=== PATIENT | male | born 1950 | race Caucasian/White ===

== ENCOUNTER 2019-07-28 10:09 | Outpatient (CLI) | payer MEDICARE, SELFPAY ==
--- NOTE | ~2019-07-28 | XR_ITS ---
EXAMINATION: XR abdomen/kub 1V EXAM DATE: 07/28/2019 10:27 INDICATION: Kidney stones follow-up. TECHNIQUE: Frontal projection(s) of the abdomen for interpretation. Comparison is made to prior exami nation from 12/24/2018. FINDINGS: There is expected amount of colonic stool and gas. No small bowel dilation, nonobstructiv e bowel gas pattern. There are 6 calcifications projecting over the left mid and lower calyces consi stent with stones, largest measuring about 8 mm. These have shifted in position but otherwise don't a ppear significantly changed. Calcifications in the pelvis are believed to be phleboliths. There is no organomegaly suspected. There are mild bony degenerative changes. IMPRESSION: Left nephrolithiasis. Reviewed, dictated and finalized at location B. IMPRESSION: Left nephrolithiasis.
== END 2019-07-28 10:10 | disposition home or self-care (01) ==
LOC: ANHIMG 10:16
PROVIDERS: PCP Internal Medicine; Visit Provider Urology
DX: N20.0 Calculus of kidney (principal)
CPT/HCPCS: 74018

== ENCOUNTER → 2019-12-23 13:48 | Outpatient (CLI) | payer MEDICARE, SELFPAY ==
--- NOTE | ~2019-12-23 | US_ITS ---
EXAMINATION: US soft tissue abdomen DATE: 12/23/2019 14:13 INDICATION: Umbilical hernia TECHNIQUE: Multiple grayscale and Doppler ultrasound images of the umbilical region of concern at the anterior abdomen were obtained. COMPARISON: CT dated 12/18/2018 FINDINGS: There is a small fat-containing umbilical hernia which measures 3.5 x 1.6 x 0.8 cm. This extends ceph alad from the hernia orifice which measures approximately 1 cm in maximal diameter. The umbilical her kristal measuring approximately 1.8 x 1.2 x 1.3 cm at the time of the prior CT. No herniated bowel. IMPRESSION: 1. Interval increase in size of a still small fat-containing umbilical hernia. Reviewed, dictated and finalized at location A.
== END ==
PROVIDERS: Visit Provider Internal Medicine
DX: K42.9 Umbilical hernia without obstruction or gangrene (principal)
CPT/HCPCS: 76705

== ENCOUNTER 2020-03-11 01:18 | Outpatient (CLI) | payer MEDICARE, SELFPAY ==
[2020-03-11 18:05] LABS: SARS-CoV-2 RNA PCR Negative
== END 2020-03-11 01:19 | disposition home or self-care (01) ==
LOC: ANHCOVIDDT 01:27
PROVIDERS: Visit Provider Internal Medicine Gastroenterology
DX: Z01.812 Encounter for preprocedural laboratory examination (principal); Z20.828 Contact with and (suspected) exposure to other viral communicable diseases
CPT/HCPCS: 87635; C9803; U0003

== ENCOUNTER 2020-03-14 00:13 | Day surgery (SDC) | payer MEDICARE, SELFPAY ==
[2020-03-07 13:36] VITALS: BMI 31.6
[2020-03-14] MEDS: LACTATED RINGERS 1,000 ML 150 ML IV CONT (10:53)
[2020-03-14 10:55] VITALS: BP 119/94; PULSE 103; RESP 12; TEMP 36.5; O2SAT 96; BMI 28.1
--- NOTE | 2020-03-14 10:55 | WPDANESEPPF ---
Anes - Initial Pre Proc Eval Procedure: Operation Date: 03/14/20 12:15 Proposed Procedures p Screening Colonoscopy - Conor Earl MD Date/Time: 03/14/20 10:55 Surgeon: Conor Earl MD Pre Op Diagnosis: Neoplasm Screening Patient Data Age: 69 Gender: M Height: 5 ft 10 in Weight: 100 kg Allergies Allergy/AdvReac Type Severity Reaction Status Date / Time No Known Allergies Allergy Verified 03/14/20 10:54 Home Medications Medication Instructions Recorded Confirmed Type atorvastatin 40 mg tablet 40 mg PO DAILY 04/23/19 03/07/20 History hydrochlorothiazide 25 mg tablet 25 mg PO DAILY #30 tablet 04/26/19 03/07/20 Rx omeprazole 20 mg capsule,delayed 20 mg PO DAILY #90 cap 01/25/20 03/07/20 Rx release peg 3350-electrolytes 236 240 ml PO Q10M #4000 ml 02/08/20 Rx gram-22.74 gram-6.74 gram-5.86 gram solution cholecalciferol (vitamin D3) 50 mcg PO DAILY 03/07/20 03/07/20 History [Vitamin D3] fluticasone propionate [Xhance] 1 spray INTRANASAL BID 03/07/20 03/07/20 History multivit with min-folic acid 1 tablet PO DAILY 03/07/20 03/07/20 History [Adult One Daily Multivitamin] Patient hx anesthesia problems: none Family hx anesthesia problems: none PMFSH Past Medical History Medical History (Updated 03/14/20 @ 10:55 by Jonathon Desouza MD) Chronic gastroesophageal reflux disease Dyslipidemia, goal LDL below 130 Essential (primary) hypertension Family History Family History Mother Patient's mother is , Onset Age: 52 Father Patient's father is , Onset Age: 70 Family history of liver disease Social History Social History Smoking status: Never smoker Alcohol intake: current Drinks per week: 7 Substance use: never Substance use type: does not use Spiritual care concerns: No Anes - Eval Final PreProcedure Day of Procedure 03/14/20 10:55 Patient weight: obese Heart: regular rate and rhythm Lungs: clear to auscultation Airway: Mallampati scale class II Neurological: alert and oriented Last oral intake: >/= 8 hours ASA classification: III Emergent: no Anesthetic plan: proceed Anesthesia type and monitoring: general GIVS and standard monitoring Informed Consent: The patient's anesthetic plan and its attendant risks and benefits were discussed with the patient/family/POA. Questions were solicited and answers provided to the satisfaction of the patient/family/POA.
--- NOTE | 2020-03-14 11:16 | PM.HPGS ---
History of Present Illness History of Present Illness Consent: Risks, benefits, and alternatives have been discussed and questions answered. Patient agrees to proceed with procedure. Chief complaint: Neoplasm Screening Narrative: King Rider is a 69 year old male with colon polyps ~ 7 years ago. Review of Systems Constitutional: Constitutional: Denies headache(s) and Denies weakness Eyes: Eyes: Denies blurry vision ENT: Reports Normal hearing present, Denies headache(s) and Denies neck pain Cardiovascular: Cardiovascular: Denies chest pain and Denies dyspnea Respiratory: Respiratory: Denies dyspnea Gastrointestinal: Gastrointestinal: Reports no additional gastrointestinal complaints Genitourinary: Genitourinary: Denies dysuria Musculoskeletal: Musculoskeletal: Denies neck pain Integumentary/Breasts: Skin/Breast: Denies dry skin Neurologic: Reports Normal hearing present, Denies headache(s) and Denies weakness Psychiatric: Psychiatric: Denies anxiety Endocrine: Endocrine: Denies change in body appearance Hematologic/Lymphatic: Hematologic/Lymphatic: Denies easy bleeding Allergic/Immunologic: Allergic/Immunologic: Denies urticaria PMFSH Past Medical History Medical History (Updated 03/14/20 @ 11:17 by Conor Earl MD) Adenomatous colon polyp Chronic gastroesophageal reflux disease Dyslipidemia, goal LDL below 130 Essential (primary) hypertension Family History Family History Mother Patient's mother is , Onset Age: 52 Father Patient's father is , Onset Age: 70 Family history of liver disease Social History Social History Smoking status: Never smoker Alcohol intake: current Drinks per week: 7 Substance use: never Substance use type: does not use Spiritual care concerns: No Meds Home Medications and Allergies Home Medications Medication Instructions Recorded Confirmed Type atorvastatin 40 mg tablet 40 mg PO DAILY 04/23/19 03/07/20 History hydrochlorothiazide 25 mg tablet 25 mg PO DAILY #30 tablet 04/26/19 03/07/20 Rx omeprazole 20 mg capsule,delayed 20 mg PO DAILY #90 cap 01/25/20 03/07/20 Rx release peg 3350-electrolytes 236 240 ml PO Q10M #4000 ml 02/08/20 Rx gram-22.74 gram-6.74 gram-5.86 gram solution cholecalciferol (vitamin D3) 50 mcg PO DAILY 03/07/20 03/07/20 History [Vitamin D3] fluticasone propionate [Xhance] 1 spray INTRANASAL BID 03/07/20 03/07/20 History multivit with min-folic acid 1 tablet PO DAILY 03/07/20 03/07/20 History [Adult One Daily Multivitamin] Allergies Allergy/AdvReac Type Severity Reaction Status Date / Time No Known Allergies Allergy Verified 03/14/20 10:54 Vital Signs Vital Signs - 24 hr 03/14/20 10:55 Temperature 97.7 F Pulse Rate 103 H Respiratory Rate 12 Blood Pressure 119/94 H Pulse Oximetry 96 Exam Const: General: comfortable and no acute distress HENMT: General nose exam: Normal nares present Eyes: General: appearance normal, both eyes and all related structures Neck: Neck: no JVD Resp: Auscultation: clear to auscultation bilaterally Cardio: Rate: regular rate Rhythm: regular rhythm GI: Inspection: non-distended GI Palp: Yes Soft to palpation Skin: General skin exam: normal color Neuro: General: gait normal Speech: normal speech Extrem: General: normal to inspection Psych: Mental Status: mental status grossly normal Assessment and Plan Assessment and plan (1) Adenomatous colon polyp: Code(s): D12.6 - Benign neoplasm of colon, unspecified Status: Acute Assessment and Plan: will proceed with colonoscopy
[2020-03-14 11:40] VITALS: BP 102/71; PULSE 73; RESP 18; O2SAT 95
[2020-03-14 11:50] VITALS: BP 97/66; PULSE 72; RESP 15; O2SAT 93
[2020-03-14 12:00] VITALS: BP 115/86; PULSE 76; RESP 15; O2SAT 93
== END 2020-03-14 12:17 | disposition home or self-care (01) ==
PROVIDERS: PCP Internal Medicine; Visit Provider Internal Medicine Gastroenterology
PROC: 0DJD8ZZ Inspection of Lower Intestinal Tract, Via Natural or Artificial Opening Endoscopic (ICD-10-PCS; CPT 45378; principal; 2020-03-14 12:15)
DX: Z12.11 Encounter for screening for malignant neoplasm of colon (principal); K57.30 Diverticulosis of large intestine without perforation or abscess without bleeding; K63.5 Polyp of colon; K21.9 Gastro-esophageal reflux disease without esophagitis; E78.5 Hyperlipidemia, unspecified; I10 Essential (primary) hypertension; E66.9 Obesity, unspecified; Z68.28 Body mass index [BMI] 28.0-28.9, adult
CPT/HCPCS: 45380; 88305; J2704; J7120

== ENCOUNTER 2020-03-20 14:26 | Outpatient (CLI) | payer MEDICARE, SELFPAY ==
--- NOTE | ~2020-03-20 | XR_ITS ---
EXAMINATION: XR abdomen/kub 1V DATE: 03/20/2020 14:46 INDICATION: Left kidney stone. TECHNIQUE: A supine view of the abdomen on 2 radiographs was obtained. COMPARISON: CT abdomen and pelvis 12/18/2018, abdomen radiographs 07/28/2019 FINDINGS: There are phleboliths in the pelvis. There are 6 stones in left kidney lower pole measuring up to 8 mm. There are no dilated loops of bowel. IMPRESSION: 1. Left kidney stones. Reviewed, dictated and finalized at location A. [employer] IMPRESSION: 1. Left kidney stones.
== END 2020-03-20 14:27 | disposition home or self-care (01) ==
LOC: ANHIMG 14:33
PROVIDERS: PCP Internal Medicine; Visit Provider Internal Medicine Nephrology
DX: N20.0 Calculus of kidney (principal)
CPT/HCPCS: 74018

== ENCOUNTER 2020-08-16 11:36 | Outpatient (CLI) | payer MEDICARE, SELFPAY ==
--- NOTE | ~2020-08-16 | XR_ITS ---
EXAMINATION: XR foot LT min 3V DATE: 08/16/2020 11:53 INDICATION: Left foot pain. TECHNIQUE: 4 views of left foot were obtained. COMPARISON: None. FINDINGS: Bone alignment is normal. No fracture. There is mild osteoarthritis of first metatarsophala ngeal joint and talonavicular joint. IMPRESSION: 1. Mild polyarticular osteoarthritis. Reviewed, dictated and finalized at location A.
== END 2020-08-16 11:37 | disposition home or self-care (01) ==
PROVIDERS: PCP Internal Medicine; Visit Provider Internal Medicine
DX: M19.072 Primary osteoarthritis, left ankle and foot (principal)
CPT/HCPCS: 73630

== ENCOUNTER 2021-02-13 14:27 | Outpatient (CLI) | payer MEDICARE, SELFPAY ==
--- NOTE | ~2021-02-13 | US_ITS ---
EXAMINATION: US arterial ankle brachial ind DATE: 02/13/2021 15:08 INDICATION: Right leg pain. Hypercholesterolemia. TECHNIQUE: Segmental pressures and plethysmographic and Doppler waveforms of the brachial and lower e xtremity arteries were obtained. COMPARISON: None. FINDINGS: Right and left brachial artery pressures of 107 mm Hg and 108 mm Hg, respectively, are concordant (no rmal difference <= 30 mmHg). The right ankle-brachial index (VICK) is 1.45 (normal >= 0.9-1.0). The right great toe-brachial index (TBI) is 1.0 (normal >= 0.65). Arterial Doppler waveforms are triphasic at the right posterior tibial artery. The left VICK is 1.41. The left TBI is 0.98. Arterial Doppler waveforms are triphasic at the left post erior tibial artery. IMPRESSION: Normal examination Reviewed, dictated and finalized at Location A. Reviewed, dictated and finalized at location B. IMPRESSION: Normal examination
== END 2021-02-13 14:28 | disposition home or self-care (01) ==
PROVIDERS: PCP Internal Medicine; Visit Provider Internal Medicine
DX: M79.604 Pain in right leg (principal); M79.605 Pain in left leg; E78.00 Pure hypercholesterolemia, unspecified; I73.9 Peripheral vascular disease, unspecified
CPT/HCPCS: 93922

== ENCOUNTER 2021-09-19 10:50 | Outpatient (CLI) | payer MEDICARE, SELFPAY ==
--- NOTE | ~2021-09-19 | XR_ITS ---
EXAM: XR abdomen/kub 1V HISTORY: CALCULUS OF KIDNEY FU DENIES PAIN COMPARISON: 03/20/20 FINDINGS: Normal bowel gas pattern. No organomegaly. 6 left renal calcifications, largest measuring 8mm, representing 5 old and one new stone. One stone seen the prior appears to have passed. Several h ave enlarged slightly. Phleboliths. Regional bones and soft tissues normal for age. IMPRESSION: Left nephrolithiasis. Reviewed, dictated and finalized at location K. IMPRESSION: Left nephrolithiasis.
== END 2021-09-19 10:51 | disposition home or self-care (01) ==
PROVIDERS: PCP Internal Medicine; Visit Provider Internal Medicine Nephrology
DX: N20.0 Calculus of kidney (principal); I73.9 Peripheral vascular disease, unspecified
CPT/HCPCS: 74018

== ENCOUNTER 2021-10-05 08:12 | Outpatient (CLI) | payer MEDICARE, SELFPAY ==
--- NOTE | ~2021-10-05 | NM_ITS ---
EXAMINATION: NM parathyroid w imaging DATE: 10/05/2021 12:00 INDICATION: Hypercalciuria. Hyperparathyroidism. TECHNIQUE: 20.8 mCi Tc99m sestamibi (Cardiolite) was administered by intravenous route. Anterior imag es of the neck were obtained at 10 minutes and 2 hours. Additional delayed SPECT imaging was also obt ained with reconstructions in axial, sagittal and coronal planes. COMPARISON: None. FINDINGS/IMPRESSION: There is no focus of persistent activity in the area of the thyroid or mediastinum to suggest parathy roid adenoma. Reviewed, dictated and finalized at location A.
== END 2021-10-05 08:13 | disposition home or self-care (01) ==
LOC: ANHIMG 08:14
PROVIDERS: PCP Internal Medicine; Visit Provider Internal Medicine Nephrology
DX: R82.994 Hypercalciuria (principal); E21.2 Other hyperparathyroidism
CPT/HCPCS: 78070; A9500

== ENCOUNTER 2022-01-16 08:26 | Outpatient (CLI) | payer MEDICARE, SELFPAY ==
[2022-01-16 19:57] LABS: Hemoglobin A1C 5.7 % (<5.7)
[2022-01-16 20:08] LABS: Alanine Aminotransferase 46 U/L (6-50); Albumin Level 4.5 g/dL (3.5-5.1); Alkaline Phosphatase 75 U/L (38-126); Anion Gap 12 mmol/L (8-16); Aspartate Amino Transferase 36 U/L (17-59); Bilirubin,Total 0.6 mg/dL (0.2-1.3); Blood Urea Nitrogen 20 mg/dL (9-20); Calcium 9.4 mg/dL (8.4-10.2); Carbon Dioxide 25 mmol/L (22-30); Chloride 103 mmol/L (98-107); Cholesterol 167 mg/dL (0-200); Estimated Glomerular Filt Rate > 60; Glucose 96 mg/dL (65-110); HDL Direct 47 mg/dL; Potassium 4.4 mmol/L (3.4-5.0); Sodium 140 mmol/L (137-145); Triglycerides 117 mg/dL (<150)
[2022-01-16 20:20] LABS: LDL Cholesterol Direct 87 mg/dL
== END 2022-01-16 08:27 | disposition home or self-care (01) ==
LOC: ANHGOSHLAB 08:28
PROVIDERS: PCP Family Medicine; Visit Provider Family Medicine
DX: E78.5 Hyperlipidemia, unspecified (principal); I10 Essential (primary) hypertension; Z12.5 Encounter for screening for malignant neoplasm of prostate; R73.01 Impaired fasting glucose
CPT/HCPCS: 36415; 80053; 80061; 83036; 84153; G0103

== ENCOUNTER 2022-03-12 10:28 | Outpatient (CLI) | payer MEDICARE, SELFPAY ==
--- NOTE | ~2022-03-12 | XR_ITS ---
XR abdomen/kub 1V 03/12/2022 10:47 INDICATION: Renal stones TECHNIQUE: KUB COMPARISON: Comparison to multiple prior studies sequentially, with oldest reviewed study dated 12/2018. FINDINGS: Bowel gas pattern is normal. There is no evidence of free air, mass, organomegaly, ascites or obstruction. There are multiple left renal stones in the lower pole. There are pelvic phleboliths . The bones appear intact. IMPRESSION: 1: Left nephrolithiasis. Reviewed, dictated and finalized at location B. IMPRESSION: 1: Left nephrolithiasis.
== END 2022-03-12 10:29 | disposition home or self-care (01) ==
PROVIDERS: PCP Family Medicine; Visit Provider Internal Medicine Nephrology
DX: N20.0 Calculus of kidney (principal)
CPT/HCPCS: 74018

== ENCOUNTER 2022-06-03 10:51 | Outpatient (CLI) | payer MEDICARE, SELFPAY ==
--- NOTE | ~2022-06-03 | NM_ITS ---
EXAMINATION: NM parathyroid imaging w spect DATE: 06/03/2022 15:12 INDICATION: Hyperparathyroid hormone level. Kidney stones. TECHNIQUE: 22.2 mCi Tc99m sestamibi (Cardiolite) was administered by intravenous route. Anterior imag es of the neck were obtained at 10 minutes and 3 hours. COMPARISON: 10/05/21 FINDINGS/IMPRESSION: There is no focus of persistent activity in the area of the thyroid or mediastinum to suggest parathy roid adenoma. Reviewed, dictated and finalized at location A. [employer]ER[employer]ED
== END 2022-06-03 10:52 | disposition home or self-care (01) ==
PROVIDERS: PCP Family Medicine; Visit Provider Internal Medicine Nephrology
DX: E21.0 Primary hyperparathyroidism (principal); Z87.442 Personal history of urinary calculi
CPT/HCPCS: 78071; A9500

== ENCOUNTER 2022-09-21 14:29 | Emergency (ER) | payer MEDICARE, SELFPAY ==
--- NOTE | ~2022-09-21 | CT_ITS ---
EXAMINATION: CT abdomen pelvis wo con DATE: 09/21/2022 16:24 INDICATION: Hematuria. Dysuria. Nausea and chills. TECHNIQUE: Computed tomography (CT) of the abdomen and pelvis was performed without intravenous contr ast. Automated exposure control and iterative reconstruction technique were employed. The dose-length product was 772.55 mGy-cm. COMPARISON: CT abdomen and pelvis 12/18/2018 FINDINGS: The visualized portions of the lung bases demonstrate mild atelectasis. There is mild bronc hiectasis in lingula. No pleural effusion. The heart size is normal. There are coronary artery calcif ications. No pericardial effusion. There is a small sliding hiatal hernia. There is diffuse hepatic s teatosis. The gallbladder, spleen, pancreas, and adrenal glands are normal. 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 There is a 3 mm stone in right kid jhon. There are 5 stones in left kidney measuring up to 7 mm. There is left left hydronephrosis. The p rostate is moderately enlarged. There are bilateral inguinal hernias containing fat. There is diverti culosis of the colon without evidence of diverticulitis. There are no dilated loops of bowel. The raymon endix is normal. There are no pathologically enlarged lymph nodes. There is no free intraperitoneal f luid. There is mild thoracolumbar spondylosis. IMPRESSION: 1. Bilateral nonobstructing kidney stones. 2. Chronic moderate left hydronephrosis with transition point at the ureteropelvic junction. Reviewed, dictated and finalized at location E. IMPRESSION: 1. Bilateral nonobstructing kidney stones. 2. Chronic moderate left hydronephrosis with transition point at the ureteropel brant junction.
[2022-09-21 14:30] VITALS: BP 125/82; PULSE 106; RESP 18; TEMP 37.9; O2SAT 96
--- NOTE | 2022-09-21 15:11 | ED.GENADULT ---
HPI - General Adult General Chief complaint: Urogenital-Male Stated complaint: flank pain Time Seen by Provider: 09/21/22 14:37 History of Present Illness HPI narrative: 71-year-old male presented the emergency department for evaluation of fevers chills and urinary pain. Patient reports that the symptoms did start yesterday. Patient has no prior history of urinary tract infection or urinary retention. Patient reports he does have history of kidney stones but states this does not feel acute kidney stone. Patient does have follow-up with Dr. Arriola and Dr. Dawson. Related Data Home Medications Medication Instructions Recorded Confirmed cholecalciferol (vitamin D3) 50 50 mcg PO DAILY 03/07/20 07/18/22 mcg (2,000 unit) capsule (Vitamin D3) allopurinol 100 mg tablet 100 mg PO DAILY 08/16/20 07/18/22 magnesium 30 mg tablet 30 mg PO DAILY 02/27/22 07/18/22 triamcinolone acetonide 0.1 % 1 applic topical BID PRN 07/18/22 07/18/22 topical cream Allergies Allergy/AdvReac Type Severity Reaction Status Date / Time No Known Allergies Allergy Verified 09/21/22 14:40 Review of Systems Review of Systems: All systems reviewed & are unremarkable except as noted in HPI and below PMFSH Past Medical History Medical History Adenomatous colon polyp Cancer Chronic gastroesophageal reflux disease Dyslipidemia, goal LDL below 130 Essential (primary) hypertension Family History Family History Mother Patient's mother is , Onset Age: 52 Depression Father Patient's father is , Onset Age: 70 Family history of liver disease Alcoholism Social History Social History Smoking status: Never smoker Alcohol intake: current Drinks per week: 7 Substance use: never Substance use type: does not use Lack of Transportation: No Lack of Food: Never True Current Housing: I Have Housing Concerned About Future Housing: No Difficulty Paying Gas/Electric Bills: No Difficulty Paying for Meds: No Currently Unemployed: No Education: Bachelor's Degree Difficulty w/ Childcare or Family Care: No Spiritual care concerns: No Exam Narrative: APPEARANCE: Well appearing, no pain, no distress, well-nourished. HEAD: normocephalic, atraumatic. EYES: PERRLA/EOMI, conjunctivae clear. NOSE: Normal no drainage NECK: Supple. No adenopathy, no masses. RESPIRATORY: Airway patent, respirations nonlabored. Clear to auscultation bilaterally, no rales, rhonchi, wheezing. CARDIOVASCULAR: Regular rate and rhythm without murmurs rubs or gallops. ABDOMINAL: Soft, nontender, nondistended, normal bowel sounds MUSCULOSKELETAL: Moves all extremities. Strength/ROM intact, No edema, No calf tenderness. NEURO: Alert. Cranial nerves II through XII intact. Good gait. Good coordination SKIN: Warm, dry. Normal Color Course Course Emergency Course: 71-year-old male presented the ED for evaluation of burning with urination. UA was significant for urinary tract infection. Patient did have history of kidney stones so a CT scan was ordered to rule out current ureterolithiasis. CT was negative. Patient does have a significantly elevated leukocytosis. Patient was offered admission but prefers discharge to home. Patient was treated with IV Rocephin in the emergency department. Patient was also treated with p.o. Pyridium. Patient will be discharged home with p.o. Keflex. Patient did have a bedside bladder scan which showed no retained urine. Vital Signs Vital signs: Vital Signs Temperature 100.3 F H 09/21/22 14:30 Pulse Rate 106 H 09/21/22 14:30 Respiratory Rate 18 09/21/22 14:30 Blood Pressure 125/82 09/21/22 14:30 Pulse Oximetry 96 09/21/22 14:30 Oxygen Delivery Room Air 09/21/22 14:30 Temperature 100.3 F H 09/21/22
[2022-09-21 15:24] LABS: Basophils Absolute Auto 0.1 K/mm3 (0.0-0.1); Basophils Percent Auto 0.2 % (0.2-1.2); Hematocrit 48.5 % (42.0-52.0); Hemoglobin 16.3 g/dL (14.0-18.0); Immature Granulocyte Absolute 0.12 K/mm3 (0.00-0.031); Immature Granulocyte Percent A 0.5 % (0-0.5); Lymphocytes Percent Auto 3.6 % (18.3-44.2); Mean Corpuscular HGB Conc 33.6 g/dl (32-36); Mean Corpuscular Hemoglobin 28.2 pg (26-34); Mean Corpuscular Volume 83.8 fl (80-100); Mean Platelet Volume 10.2 fl (7.4-10.4); Monocytes Absolute Auto 1.9 K/mm3 (0.1-0.6); Monocytes Percent Auto 7.4 % (2.6-8.5); Neutrophils Percent Auto 88.3 % (45.5-73.1); Platelet Count Result 207 k/mm3 (150-375); Red Blood Count 5.79 M/mm3 (4.6-6.20); Red Cell Distribution Width 14.5 % (11.5-14.5); White Blood Count 24.9 K/mm3 (4.5-10.0)
[2022-09-21 15:34] LABS: Alanine Aminotransferase 35 U/L (6-50); Albumin Level 4.5 g/dL (3.5-5.1); Alkaline Phosphatase 76 U/L (38-126); Anion Gap 10 mmol/L (8-16); Aspartate Amino Transferase 30 U/L (17-59); Bilirubin,Total 1.2 mg/dL (0.2-1.3); Blood Urea Nitrogen 22 mg/dL (9-20); Carbon Dioxide 24 mmol/L (22-30); Chloride 100 mmol/L (98-107); Estimated CRCL calculation 69 ml/min; Estimated Glomerular Filt Rate > 60; Glucose 120 mg/dL (65-110); Potassium 3.2 mmol/L (3.4-5.0); Sodium 134 mmol/L (137-145)
[2022-09-21 16:00] LABS: Appearance Urine Cloudy (Clear); Bacteria Urine 4+ /hpf; Bilirubin Urine Negative (Negative); Blood Urine 2+ (Negative); Color Urine Yellow (Yellow); Glucose Urine UA Negative (Negative); Ketones Urine 1+ mg/dL (Negative); Leukocyte Esterase Ur 3+ LEU/UL (Negative); Nitrate Urine Negative (Negative); Non Pathogenic Casts 0-2; Protein Urine 1+ mg/dL (Negative); RBC Urine 21-50 /hpf (0-2); Specific Grav Ur 1.023 (1.001-1.035); Squamous Epithelial Cell Urine None seen /hpf (Few); WBC Urine >100 /hpf; pH Urine 5.5 (5.0-9.0)
[2022-09-21 16:05] LABS: Add Urine Microscopic? YES
[2022-09-21] MEDS: PHENAZOPYRIDINE HCL 100 MG TABLET 200 MG PO (16:16)
[2022-09-21 17:05] VITALS: BP 124/92; PULSE 100; RESP 18; O2SAT 96
== END 2022-09-21 17:05 | disposition home or self-care (01) ==
PROVIDERS: Emergency Provider Emergency Medicine; PCP Family Medicine
DX: N12 Tubulo-interstitial nephritis, not specified as acute or chronic (principal); E78.5 Hyperlipidemia, unspecified; I10 Essential (primary) hypertension; K21.9 Gastro-esophageal reflux disease without esophagitis; Z86.010 Personal history of colon polyps; N13.30 Unspecified hydronephrosis; N20.0 Calculus of kidney
CPT/HCPCS: 36415; 74176; 80053; 81001; 85025; 87077; 87086; 87186; 96365; 99284; A9270; J0696

== ENCOUNTER 2022-10-10 08:37 | Outpatient (CLI) | payer MEDICARE, SELFPAY ==
--- NOTE | ~2022-10-10 | XR_ITS ---
Supine and upright views of the abdomen Clinical history: Horseshoe kidney, renal stones COMPARISON: 03/12/2022 Findings: Bowel gas pattern is nonspecific. No evidence for obstruction or free air. Multiple left-si ded renal stones are similar to prior exam. Osseous structures are intact. Impression: Multiple left-sided renal stones, similar to prior exam. Reviewed, dictated and finalized at [facility]. Impression: Multiple left-sided renal stones, similar to prior exam.
== END 2022-10-10 08:38 | disposition home or self-care (01) ==
LOC: ANHIMG 08:45
PROVIDERS: PCP Family Medicine; Visit Provider Nurse Practitioner Family
DX: Q63.1 Lobulated, fused and horseshoe kidney (principal); N20.0 Calculus of kidney
CPT/HCPCS: 74018

== ENCOUNTER 2022-11-08 08:38 | Outpatient (CLI) | payer MEDICARE, SELFPAY ==
--- NOTE | ~2022-11-08 | XR_ITS ---
Supine and upright views of the abdomen Clinical history: Microscopic hematuria COMPARISON: 10/10/2022 Findings: Bowel gas pattern is nonspecific. No evidence for obstruction or free air. Multiple left lo wer pole renal stones are present, largest measuring 1 cm in diameter.. Osseous structures are intact . Impression: Multiple left lower pole renal stones, essentially unchanged. Reviewed, dictated and finalized at location . Impression: Multiple left lower pole renal stones, essentially unchanged.
--- NOTE | ~2022-11-08 | CT_ITS ---
CT of the Abdomen and Pelvis: Indication: Microscopic hematuria Technique: 2.5 mm axial scans were obtained through the abdomen and pelvis prior to and following in travenous administration of 130 cc of Omnipaque 350. Dose reduction technique was used on this scan b y utilizing automated exposure control and iterative reconstruction technique. The dose-length produc t (DLP) was 1906.75 mGy-cm. COMPARISON: 09/21/2022 Findings: Scans through the lung bases are unremarkable. Horseshoe kidney again noted, with stable nonobstructing stones at the left lower renal moiety. There is mild left hydronephrosis and prominent dilatation of the left renal pelvis with abrupt tapering a t the left UPJ region, compatible with an element of chronic left UPJ obstruction. No right hydroneph rosis. No ureteral stones identified. The liver, spleen, pancreas, gallbladder, and adrenal glands are within normal limits. No evidence of aortic aneurysm. No lymphadenopathy. No bowel obstruction or bowel wall thickening. There is no evidence to suggest acute appendicitis. Co lonic diverticulosis noted. Images through the pelvis were performed. Urinary bladder unremarkable. Prostate gland and seminal ve sicles are unremarkable. No ascites. Impression: Horseshoe kidney with stable dilatation of the left renal collecting system and left renal pelvis wit h tapering at the left UPJ, which could indicate element of underlying chronic left UPJ obstruction. Nonobstructing left renal stones, stable from prior exam. No significant change since 09/21/2022. Reviewed, dictated and finalized at [facility]. Impression: Horseshoe kidney with stable dilatation of the left renal collecting system and left renal pelvis with tapering at the left UPJ, which could indicate element of underlying chronic left UPJ obstruction. Nonobstructing left renal stones, stable from prior exam. No significant change since 09/21/2022.
[2022-11-08 09:03] LABS: Estimated Glomerular Filt Rate > 60
== END 2022-11-08 08:39 | disposition home or self-care (01) ==
PROVIDERS: PCP Family Medicine; Visit Provider Nurse Practitioner Adult Health
DX: R31.29 Other microscopic hematuria (principal); N20.0 Calculus of kidney; Q63.1 Lobulated, fused and horseshoe kidney
CPT/HCPCS: 74018; 74178; Q9967

== ENCOUNTER 2022-11-22 08:10 | Outpatient (CLI) | payer MEDICARE, SELFPAY ==
[2022-11-22 18:34] LABS: Albumin Level 4.2 g/dL (3.5-5.1); Anion Gap 6 mmol/L (8-16); Blood Urea Nitrogen 20 mg/dL (9-20); Calcium 9.2 mg/dL (8.4-10.2); Carbon Dioxide 30 mmol/L (22-30); Chloride 103 mmol/L (98-107); Estimated Glomerular Filt Rate > 60; Glucose 103 mg/dL (65-110); Phosphorus 3.7 mg/dL (2.5-4.5); Sodium 139 mmol/L (137-145)
[2022-11-22 18:40] LABS: Parathyroid Intact 92.5 pg/mL (7.5-53.5)
[2022-11-22 19:43] LABS: Appearance Urine Clear (Clear); Bacteria Urine None Seen /hpf; Bilirubin Urine Negative (Negative); Blood Urine 1+ (Negative); Color Urine Yellow (Yellow); Glucose Urine UA Negative (Negative); Ketones Urine Negative (Negative); Leukocyte Esterase Ur Trace LEU/UL (NEGATIVE); Nitrate Urine Negative (Negative); Non Pathogenic Casts 0-2; Protein Urine Negative (Negative); Specific Grav Ur 1.021 (1.001-1.035); Squamous Epithelial Cell Urine None seen /hpf (Few); Urobilinogen Urine 0.2 mg/dL (<2.0); WBC Urine 0-5 /hpf (0-3)
[2022-11-22 19:46] LABS: Add Urine Microscopic? YES
== END 2022-11-22 08:11 | disposition home or self-care (01) ==
LOC: ANHGOSHLAB 08:12
PROVIDERS: PCP Family Medicine; Visit Provider Internal Medicine Nephrology
DX: E21.0 Primary hyperparathyroidism (principal); Z87.442 Personal history of urinary calculi
CPT/HCPCS: 36415; 80069; 81001; 83970

== ENCOUNTER 2023-02-10 08:39 | Outpatient (CLI) | payer MEDICARE, SELFPAY ==
[2023-02-10 19:30] LABS: Alanine Aminotransferase 37 U/L (6-50); Albumin Level 4.4 g/dL (3.5-5.1); Alkaline Phosphatase 82 U/L (38-126); Anion Gap 7 mmol/L (8-16); Aspartate Amino Transferase 34 U/L (17-59); Bilirubin,Total 0.8 mg/dL (0.2-1.3); Blood Urea Nitrogen 25 mg/dL (9-20); Calcium 9.2 mg/dL (8.4-10.2); Carbon Dioxide 28 mmol/L (22-30); Chloride 105 mmol/L (98-107); Cholesterol 181 mg/dL (0-200); Estimated Glomerular Filt Rate > 60; Glucose 110 mg/dL (65-110); HDL Direct 53 mg/dL; Potassium 4.4 mmol/L (3.4-5.0); Sodium 140 mmol/L (137-145); Triglycerides 137 mg/dL (<150)
[2023-02-10 19:40] LABS: LDL Cholesterol Direct 94 mg/dL
[2023-02-11 17:45] LABS: Prostate Specific Antigen 1.5 ng/mL (< OR = 4.0)
== END 2023-02-10 08:40 | disposition home or self-care (01) ==
PROVIDERS: PCP Family Medicine; Visit Provider Family Medicine
DX: Z12.5 Encounter for screening for malignant neoplasm of prostate (principal); E78.5 Hyperlipidemia, unspecified; Z13.228 Encounter for screening for other metabolic disorders
CPT/HCPCS: 36415; 80053; 80061; 84153; G0103

== ENCOUNTER 2023-10-10 09:28 | Outpatient (CLI) | payer MEDICARE, SELFPAY ==
--- NOTE | ~2023-10-10 | XR_ITS ---
EXAMINATION: XR abdomen/kub 1V DATE: 10/10/2023 09:51 INDICATION: Horseshoe kidney with renal calculus TECHNIQUE: A supine view of the abdomen on 2 radiographs was obtained. COMPARISON: CT dated 11/08/2022 FINDINGS: There is a cluster 6 round stones project over the lower pole of the left kidney measuring between 5 mm and 10 mm. Unchanged pattern of phleboliths and atherosclerotic calcification is in the pelvis. No other urolithiasis. Normal bowel gas pattern. Lung bases are clear with prominent left paracardial f at pad. Bone island at the right femoral head. IMPRESSION: 1. Cluster of six, 5-10 mm stones at the lower pole of the left kidney. Reviewed, dictated and finalized at location A.
== END 2023-10-10 09:29 | disposition home or self-care (01) ==
PROVIDERS: PCP Family Medicine; Visit Provider Urology
DX: Q63.1 Lobulated, fused and horseshoe kidney (principal); N20.0 Calculus of kidney
CPT/HCPCS: 74018

== ENCOUNTER 2023-10-30 13:00 | Outpatient (CLI) | payer MEDICARE, SELFPAY ==
[2023-10-30 15:12] LABS: Appearance Urine Clear (Clear); Bilirubin Urine Negative (Negative); Blood Urine Negative (Negative); Color Urine Yellow (Yellow); Glucose Urine UA Trace mg/dL (Negative); Ketones Urine Negative (Negative); Leukocyte Esterase Ur Negative LEU/UL (Negative); Nitrate Urine Negative (Negative); Protein Urine Negative (Negative); Specific Grav Ur 1.022 (1.001-1.035); Urobilinogen Urine 0.2 mg/dL (<2.0); pH Urine 5.5 (5.0-9.0)
[2023-10-30 15:15] LABS: Add Urine Microscopic? NO
[2023-10-30 15:41] LABS: Parathyroid Intact 102.4 pg/mL (7.5-53.5)
[2023-10-30 15:46] LABS: Albumin Level 4.4 g/dL (3.5-5.1); Anion Gap 8 mmol/L (4-12); Blood Urea Nitrogen 23 mg/dL (9-20); Calcium 9.1 mg/dL (8.4-10.2); Carbon Dioxide 26 mmol/L (22-30); Chloride 106 mmol/L (98-107); Estimated Glomerular Filt Rate > 60; Glucose 107 mg/dL (65-110); Phosphorus 3.3 mg/dL (2.5-4.5); Potassium 3.7 mmol/L (3.4-5.0); Sodium 140 mmol/L (137-145); Uric Acid 4.1 mg/dL (3.5-8.5)
[2023-10-30 16:58] LABS: Total Protein Urine Random < 5 mg/dL; Ur Ttl Prot Creatinine Ratio < 0.04 mg/mg (0-0.20)
== END 2023-10-30 13:01 | disposition home or self-care (01) ==
PROVIDERS: PCP Family Medicine; Visit Provider Internal Medicine Nephrology
DX: E21.0 Primary hyperparathyroidism (principal); Z87.442 Personal history of urinary calculi
CPT/HCPCS: 36415; 80069; 81003; 82570; 83970; 84156; 84550

== ENCOUNTER 2023-11-04 15:11 | Outpatient (CLI) | payer MEDICARE, SELFPAY ==
--- NOTE | ~2023-11-04 | US_ITS ---
EXAMINATION: US soft tissue pelvic DATE: 11/04/2023 15:26 INDICATION: lower ab pain . TECHNIQUE: Grayscale and Doppler ultrasound images of the lower abdomen/upper pelvis were obtained. COMPARISON: None. FINDINGS: The area of clinical concern at the midline waist, superior to the pubic symphysis, was son ographically interrogated, revealing no solid or cystic mass. IMPRESSION: No sonographic abnormality detected in the area of clinical concern. Reviewed, dictated and finalized at location K.
== END 2023-11-04 15:12 ==
LOC: GOSHIMG 15:11
PROVIDERS: PCP Family Medicine; Visit Provider Family Medicine
DX: R10.30 Lower abdominal pain, unspecified (principal)
CPT/HCPCS: 76857

== ENCOUNTER 2023-11-14 10:16 | Outpatient (CLI) | payer MEDICARE, SELFPAY ==
[2023-11-14 13:13] LABS: Vitamin D 25 Hydroxy 40.6 ng/mL
== END 2023-11-14 10:17 | disposition home or self-care (01) ==
LOC: ANHGOSHLAB 10:19
PROVIDERS: PCP Family Medicine; Visit Provider Internal Medicine Nephrology
DX: E21.3 Hyperparathyroidism, unspecified (principal)
CPT/HCPCS: 36415; 82306

== ENCOUNTER 2023-11-26 09:41 | Outpatient (CLI) | payer MEDICARE, SELFPAY ==
--- NOTE | ~2023-11-26 | CT_ITS ---
CT of the Abdomen and Pelvis: Indication: Abdominal pain Technique: 2.5 mm axial scans were obtained through the abdomen and pelvis following intravenous adm inistration of 100 cc of Omnipaque 350. Dose reduction technique was used on this scan by utilizing a utomated exposure control and iterative reconstruction technique. The dose-length product (DLP) was 7 25.67 mGy-cm. COMPARISON: 11/08/2029 Findings: Scans through the lung bases are unremarkable. The liver, spleen, pancreas, gallbladder, and adrenal glands are within normal limits. Horseshoe kidn ey present, with multiple nonobstructing left renal stones measuring between 5 mm. No right-sided sto deven present. There is a prominent left extrarenal pelvis, without giovani hydronephrosis. No ureteral s tones identified. No evidence of aortic aneurysm. No lymphadenopathy. No bowel obstruction or bowel wall thickening. There is no evidence to suggest acute appendicitis. Images through the pelvis were performed. Urinary bladder unremarkable. No pelvic mass seen. No ascit es. Impression: No acute abnormality evident. Horseshoe kidney with multiple nonobstructing left renal stones, as detailed above. Reviewed, dictated and finalized at location . Impression: No acute abnormality evident. Horseshoe kidney with multiple nonobstructing left renal stones, as detailed ab deione.
== END 2023-11-26 09:42 | disposition home or self-care (01) ==
LOC: ANHIMG 09:43
PROVIDERS: PCP Family Medicine; Visit Provider Family Medicine
DX: R10.32 Left lower quadrant pain (principal)
CPT/HCPCS: 74177; Q9967

== ENCOUNTER 2023-12-01 10:36 | Outpatient (CLI) | payer MEDICARE, SELFPAY ==
[2023-12-02 16:32] LABS: Urine Calcium, Random 7.3 mg/dL; Urine Creatinine, Random 85 mg/dL (20-320)
[2023-12-04 08:44] LABS: Calcium/Creatinine Ratio, Ur 86 mg/g creat
== END 2023-12-01 10:37 | disposition home or self-care (01) ==
LOC: ANHGOSHLAB 10:40
PROVIDERS: PCP Family Medicine; Visit Provider Internal Medicine Nephrology
DX: E21.3 Hyperparathyroidism, unspecified (principal)
CPT/HCPCS: 82310; 82570

== ENCOUNTER 2024-01-30 07:54 | Outpatient (CLI) | payer MEDICARE, SELFPAY ==
[2024-01-30 16:02] LABS: Alanine Aminotransferase 44 U/L (6-50); Albumin Level 4.3 g/dL (3.5-5.1); Alkaline Phosphatase 75 U/L (38-126); Anion Gap 7 mmol/L (4-12); Aspartate Amino Transferase 99 U/L (17-59); Bilirubin,Total 0.7 mg/dL (0.2-1.3); Blood Urea Nitrogen 20 mg/dL (9-20); Calcium 9.3 mg/dL (8.4-10.2); Carbon Dioxide 32 mmol/L (22-30); Chloride 99 mmol/L (98-107); Cholesterol 154 mg/dL (0-200); Estimated Glomerular Filt Rate > 60; Glucose 94 mg/dL (65-110); HDL Direct 45 mg/dL; Sodium 138 mmol/L (137-145); Triglycerides 110 mg/dL (<150)
[2024-01-30 16:13] LABS: LDL Cholesterol Direct 78 mg/dL
[2024-01-30 16:29] LABS: Prostate Specific Antigen 1.5 ng/mL (< OR = 4.0)
== END 2024-01-30 07:55 | disposition home or self-care (01) ==
PROVIDERS: PCP Family Medicine; Visit Provider Family Medicine
DX: E78.5 Hyperlipidemia, unspecified (principal); Z13.228 Encounter for screening for other metabolic disorders; Z12.5 Encounter for screening for malignant neoplasm of prostate
CPT/HCPCS: 36415; 80053; 80061; 84153; G0103

== ENCOUNTER 2024-02-12 14:32 | Outpatient (CLI) | payer MEDICARE, SELFPAY ==
[2024-02-12 19:59] LABS: Alanine Aminotransferase 40 U/L (6-50); Albumin Level 4.4 g/dL (3.5-5.1); Alkaline Phosphatase 96 U/L (38-126); Anion Gap 7 mmol/L (4-12); Aspartate Amino Transferase 40 U/L (17-59); Bilirubin,Total 0.4 mg/dL (0.2-1.3); Blood Urea Nitrogen 22 mg/dL (9-20); Calcium 9.3 mg/dL (8.4-10.2); Carbon Dioxide 27 mmol/L (22-30); Chloride 103 mmol/L (98-107); Estimated Glomerular Filt Rate > 60; Glucose 100 mg/dL (65-110); Potassium 3.6 mmol/L (3.4-5.0); Sodium 137 mmol/L (137-145)
== END 2024-02-12 14:33 | disposition home or self-care (01) ==
LOC: ANHGOSHLAB 14:34
PROVIDERS: PCP Family Medicine; Visit Provider Family Medicine
DX: Z13.228 Encounter for screening for other metabolic disorders (principal)
CPT/HCPCS: 36415; 80053

== ENCOUNTER 2024-04-20 08:33 | Outpatient (CLI) | payer MEDICARE, SELFPAY ==
[2024-04-20 12:56] LABS: Hematocrit 51.8 % (42.0-52.0); Hemoglobin 16.7 g/dL (14.0-18.0); Mean Corpuscular HGB Conc 32.2 g/dl (32-36); Mean Corpuscular Volume 86.9 fl (80-100); Platelet Count Result 247 k/mm3 (150-375); Red Blood Count 5.96 M/mm3 (4.6-6.20); Red Cell Distribution Width 14.8 % (11.5-14.5); White Blood Count 7.5 K/mm3 (4.5-10.0)
[2024-04-20 12:59] LABS: Add Urine Microscopic? YES; Appearance Urine Clear (Clear); Bacteria Urine None Seen /hpf; Bilirubin Urine Negative (Negative); Blood Urine 3+ (Negative); Color Urine Yellow (Yellow); Glucose Urine UA Negative (Negative); Ketones Urine Negative (Negative); Leukocyte Esterase Ur Negative LEU/UL (Negative); Nitrate Urine Negative (Negative); Non Pathogenic Casts 0-2; Protein Urine Negative (Negative); RBC Urine >100 /hpf (0-2); Specific Grav Ur 1.019 (1.001-1.035); Squamous Epithelial Cell Urine None Seen /hpf (Few); WBC Urine 0-5 /hpf (0-3)
[2024-04-20 13:03] LABS: Creatinine Urine 117.8 mg/dL; Total Protein Urine Random 8 mg/dL; Ur Ttl Prot Creatinine Ratio 0.07 mg/mg (0-0.20)
[2024-04-20 13:23] LABS: Albumin Level 4.6 g/dL (3.5-5.1); Anion Gap 4 mmol/L (4-12); Blood Urea Nitrogen 22 mg/dL (9-20); Calcium 9.4 mg/dL (8.4-10.2); Carbon Dioxide 32 mmol/L (22-30); Chloride 103 mmol/L (98-107); Estimated Glomerular Filt Rate > 60; Glucose 81 mg/dL (65-110); Phosphorus 2.9 mg/dL (2.5-4.5); Potassium 3.9 mmol/L (3.4-5.0); Sodium 139 mmol/L (137-145); Uric Acid 4.4 mg/dL (3.5-8.5)
[2024-04-20 13:28] LABS: Parathyroid Intact 54.3 pg/mL (14.5-75.2)
[2024-04-20 14:01] LABS: Vitamin D 25 Hydroxy 31.9 ng/mL
== END 2024-04-20 08:34 | disposition home or self-care (01) ==
PROVIDERS: PCP Internal Medicine; Visit Provider Internal Medicine Nephrology
DX: E21.3 Hyperparathyroidism, unspecified (principal); N18.9 Chronic kidney disease, unspecified; Z87.442 Personal history of urinary calculi
CPT/HCPCS: 36415; 80069; 81001; 82306; 82570; 83970; 84156; 84550; 85027

== ENCOUNTER 2024-08-13 00:56 | Day surgery (SDC) | payer MEDICARE, SELFPAY ==
[2024-08-03 09:16] VITALS: BMI 28.8
--- OUTSIDE RECORDS SUMMARY | 2024-08-13 00:59 | XMS_ITS | Referral Summary ---
Author Organization [facility] Address [address] [place] [address] Care Team Providers Care Chair Finisher Name Role Phone Ernesto Almeida DO Primary Care Provider [phone] Encounters Date Type Department Care Team Description 07/21/2024 11:30 AM MERCHANDISE FOR RESALE PURCHASING AGENT Office Visit [facility] at [address] [address] Vania Rick PA Cat bite, initial encounter (Primary Dx) from Last 3 Months Allergies No known active allergies Medications omeprazole (PriLOSEC) 20 mg capsule Take 1 capsule (20 mg total) by mouth daily Active allopurinoL (ZYLOPRIM) 300 mg tablet 1 Active magnesium oxide 400 mg magnesium capsule Take by mouth Active atorvastatin (LIPITOR) 40 mg tablet Take 1 tablet (40 mg total) by mouth daily Active aspirin 81 mg enteric coated tabletIndicati ons:prevention of thrombosis Take 1 tablet (81 mg total) by mouth daily 4 025 Active hydroCHLOROthi azide (HYDRODIURIL) 25 mg tablet Take one tab PO daily. 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 07/16/2023 Secondary hyperparathyroidism 04/08/2019 Essential hypertension 04/08/2019 Hypercalciuria 04/08/2019 Dyslipidemia 01/04/2019 Gastroesophageal reflux disease 01/04/2019 Immunizations Immunization Administration Dates Next Due Tdap 07/21/2024 Social History Tobacco Use Types Packs/Day Years Used Date Smoking Tobacco: Never Smokeless Tobacco: Never Tobacco Cessation:Counseling Given: Not Answered Sex and Gender Information Value Date Recorded Sex Assigned at Not on file Legal Sex Male 3:54 PM CDT Gender Identity Male 01/25/2022 4:59 PM CDT Sexual Orientation Straight 04/06/2019 7: 47 AM MERCHANDISE FOR RESALE PURCHASING AGENT Last Filed Vital Signs Vital Sign Reading Time Taken Comments Blood Pressure 122/86 07/21/2024 11:27 AM MERCHANDISE FOR RESALE PURCHASING AGENT Pulse 78 07/21/2024 11:27 AM MERCHANDISE FOR RESALE PURCHASING AGENT Temperature 36.7 C (98 F) 07/21/2024 11:27 AM MERCHANDISE FOR RESALE PURCHASING AGENT Respiratory Rate 16 07/21/2024 11:27 AM MERCHANDISE FOR RESALE PURCHASING AGENT Oxygen Saturation 97% 07/21/2024 11:27 AM MERCHANDISE FOR RESALE PURCHASING AGENT Inhaled Oxygen Concentration - - Weight 93.4 kg (206 lb) 07/21/2024 11:27 AM MERCHANDISE FOR RESALE PURCHASING AGENT Height 177.8 cm (5' 10 ) 02/28/2024 7:16 PM CDT Body Mass Index 29.56 02/28/2024 7:16 PM CDT Plan of Treatment [place] [address] [facility]ICARE [facility] MEDICARE [employer] Care Teams Chair Finisher Relationship Specialty Start Date End Date Ernesto Almeida DO PCP - General Family Medicine 07/20/22
--- OUTSIDE RECORDS SUMMARY | 2024-08-13 00:59 | XMS_ITS | Clinical Summary ---
Author Organization [facility] Address [address] [place] [address] Care Team Providers Care Cane Splicer Name Role Phone Ernesto Almeida DO Primary Care Provider [phone] Allergies No known active allergies Medications omeprazole [...] 04/08/2019 Dyslipidemia 01/04/2019 Gastroesophageal reflux disease 01/04/2019 Encounters Date Type Department Care Team Description 07/21/2024 11:30 AM BRIDGE IRONWORKER HELPER Office Visit [facility] Con[facility] at [address] [address] Vania Rick PA Cat bite, initial encounter (Primary Dx) from Last 3 Months Immunizations Immunization Administration Dates Next Due Tdap 07/21/2024 Medical History Medical History Date Comments Hypertension Hyperlipidemia Family History Medical History Relation Name Comments Mitral valve Brother Cirrhosis Father Mental illness Mother Relation Name Status Comments Brother Father Mother Social History Tobacco Use Types Packs/Day Years Used Date Smoking Tobacco: Never Smokeless Tobacco: Never Tobacco Cessation:Counseling Given: Not Answered Sex and Gender Information Value Date Recorded Sex Assigned at Not on file Legal Sex Male 3:54 PM CDT Gender Identity Male 01/25/2022 4:59 PM CDT Sexual Orientation Straight 04/06/2019 7: 47 AM BRIDGE IRONWORKER HELPER Obstetrics History Last Filed Vital Signs Vital Sign Reading Time Taken Comments Blood Pressure 122/86 07/21/2024 11:27 AM BRIDGE IRONWORKER HELPER Pulse 78 07/21/2024 11:27 AM BRIDGE IRONWORKER HELPER Temperature 36.7 C (98 F) 07/21/2024 11:27 AM BRIDGE IRONWORKER HELPER Respiratory Rate 16 07/21/2024 11:27 AM BRIDGE IRONWORKER HELPER Oxygen Saturation 97% 07/21/2024 11:27 AM BRIDGE IRONWORKER HELPER Inhaled Oxygen Concentration - - Weight 93.4 kg (206 lb) 07/21/2024 11:27 AM BRIDGE IRONWORKER HELPER Height 177.8 cm (5' 10 ) 02/28/2024 7:16 PM CDT Body Mass Index 29.56 02/28/2024 7:16 PM CDT Plan of Treatment Health Maintenance Due Date Last Done Comments Colon Cancer Screening-Colonoscopy 1950 Depression Screening 1950 Hepatitis C Screening 1950 Hepatitis B Screening 10/11/1969 Zoster Vaccine (2 of 3) 05/17/2014 03/22/2014 Well Visit 65+ 10/11/2016 Covid-19 Vaccine (2023-2 5 season) 2024 02/16/2021, 08/01/2020, 07/11/2020 Influenza Vaccine (#1) 2024 , 02/01/2021, 02/02/2020, Additional history exists Pneumococcal vaccine 65+ (3 of 3 - PCV20 or PCV21) 04/26/2024 04/26/2019, 01/18/2016, 03/22/2014 Fall Risk Assessment 12/23/2024 12/24/2023 DTaP/Tdap/Td Vaccine (2 - Td or Tdap) 07/21/2034 07/21/2024 [place] [address] [facility] [address] MEDICARE [facility] [address] MEDICARE [facility] Care Teams Cane Splicer Relationship Specialty Start Date End Date Ernesto Almeida DO PCP - General Family Medicine 07/20/22
--- OUTSIDE RECORDS SUMMARY | 2024-08-13 00:59 | XMS_ITS | Clinical Summary ---
Author Organization [facility] Address [address] [place] [address] Phone Care Team Providers Care Shearing Shed Worker Name Role Phone Kris Rust MD Primary Care Provider [phone] Allergies No known active allergies Medications Medication Sig Dispensed Refills Start Date End Date Status atorvastatin (LIPITOR) 40 MG tablet Take 40 mg by mouth 1 (one) time each day Active omeprazole (PriLOSEC) [address] capsule Take 20 mg by mouth 1 (one) time each day Active triamcinolone (KENALOG) 0.1 % cream 02/01/2021 Act theresa hydroCHLOROthiazide (HYDRODIURIL) 25 MG tablet Take 1 tablet (25 mg total) by mouth 1 (one) time each day 90 tablet 3 03/21/2021 Active magnesium 30 MG tablet Take 30 mg by mouth 1 (one) time each day Active allopurinol (ZYLOPRIM) 300 MG tablet TAKE 1 TABLET BY MOUTH EVERY DAY 90 tablet 3 01/14/2022 Active Active Problems Problem Noted Date Diagnosed Date Hypercalciuria 04/08/2019 Secondary hyperparathyroidism 04/08/2019 O/E: renal calculus 01/04/2019 Essential hypertension 01/04/2019 Dyslipidemia 01/04/2019 Gastroesophageal reflux disease 01/04/2019 Resolved Problems Problem Noted Date Diagnosed Date Resolved Date Hyperlipidemia 11/04/2013 09/14/2021 Overview (09/15/2020): Hyperlipidemia On Treatment Immunizations Name Administration Dates Next Due Fluzone High-Dose 02/02/2020 Influenza Split High Dose Preservative Free IM 1 Influenza TIV (IM) 02/21/2021,04/18/2019 Influenza, Unspecified 03/22/2014 Pneumococcal Conjugate 01/18/2016 Pneumococcal Conjugate 13-Valent 04/26/2019 Pneumococcal Polysaccharide 03/22/2014 Zoster 03/22/2014 Family History Medical History Relation Comments Kidney stone Neg Hx Social History Tobacco Use Types Packs/Day Years Used Date Smoking Tobacco: Former Smokeless Tobacco: Never Alcohol Use Standard Drinks/Week Comments Yes 0 (1 standard drink = 0.6 oz pur e alcohol) Sex and Gender Information Value Date Recorded Sex Assigned at Male 02/22/2019 8:43 AM MDT Gender Identity Male 02/22/2019 8:43 AM MDT Sexual Orientation Straight 02/22/2019 8: 43 AM MDT Last Filed Vital Signs Vital Sign Reading Time Taken Comments Blood Pressure 124/72 09/19/2021 10:19 AM CDT Pulse 84 09/19/2021 10:19 AM CDT Temperature 35.8 C (96.5 F) 09/19/2021 10:19 AM CDT Respiratory Rate - - Oxygen Saturation - - Inhaled Oxygen Concentration - - Weight 94.3 kg (208 lb) 09/19/2021 10:19 AM CDT Height 177.8 cm (5' 10 ) 09/19/2021 10:19 AM CDT Body Mass Index 29.84 09/19/2021 10:19 AM CDT Plan of Treatment Health Maintenance Due Date Last Done Comments Influenza Vaccine (#1) 2024 , 04/18/2019, 03/22/2014 Pneumococcal PPSV23/PCV13 65 + Years / Low and Medium Risk (3 of 3 - PPSV23 or PCV20) 04/26/2024 04/26/2019, 03/22/2014 Care Teams Shearing Shed Worker Relationship Specialty Start Date End Date Kris Rust MD [address] [place] [id number] PCP - General Family Medicine 12/28/18
--- OUTSIDE RECORDS SUMMARY | 2024-08-13 00:59 | XMS_ITS | Clinical Summary ---
Author Organization [facility] Address [address] [place] [address] Care Team Providers Care Undertaker Assistant Name Role Phone Unavailable Primary Care Provider Unavailabl e Source Comments [facility],non-owned Affiliates and Associated Physician Practices is amultiple site organization consisting of ambulatory clinics and hospital sitesin [place], [place], [place] and [place]. This disclosure is being madepursuant to the Care Everywhere program and may not contain all information available regarding this patient. Last updated 18.[facility] Encounters Date Type Department Care Team Description 07/29/2024 Lab Requisition [facility] - DermPath Lab [address] [place] [phone] Uche Peck MD from Last 3 Months Social History Tobacco Use Types Packs/Day Years Used Date Smoking Tobacco: Never Assessed Sex and Gender Information Value Date Recorded Sex Assigned at Not on file Gender Identity Not on file Sexual Orientation Not on file Plan of Treatment Health Maintenance Due Date Last Done Comments COLOGUARD (AGES 45-75) - COL ON CA SCREENING 1950 COLON MONITORING 1950 COLONOSCOPY - COLON CA SCREENING 1951 CT COLONOGRAPHY - COLON CA SCREENING 1950 Colorectal Cancer Screening 1950 FIT - COLON CA SCREENING 1950 FLEX SIG - COLON CA SCREENING 1950 LIPID TESTING 1950 MEDICARE AWV 12 MONTHS 1950 HEPATITIS C SCREENING 10/07/1969 DTAP/TDAP/TD VACCINES (1 - Tdap) 10/11/1970 PNEUMOCOCCAL VACCINE 50+ (1 of 1 - PCV) 10/11/2001 ZOSTER VACCINE (1 of 2) 10/11/2001 COVID-19 VACCINE (1 - 2023-2 5 season) 2024 INFLUENZA VACCINE (#1) 2024 DEPRESSION SCREENING 05/19/2024 Respiratory Syncytial Virus (RSV) Vaccine Pt: or over 60 yrs (1 - 1-dose 75+ series) 10/11/2026 HEPATITIS B VACCINE Aged Out No longe r eligible based on patient's age to complete this topic HIB VACCINE Aged Out No longer eligi ble based on patient's age to complete this topic HPV VACCINE Aged Out No longer eligi ble based on patient's age to complete this topic MENINGOCOCCAL (Group B) VACC INE SHARED DECISION-MAKING Aged Out No longer eligibl e based on patient's age to complete this topic MENINGOCOCCAL GROUPS A/C/Y/W VACCINE Aged Out No longer eligible b ased on patient's age to complete this topic Procedures Procedure Name Priority Date/Time Associated Diagnosis Comments DERMATOPATHOLOGY Routine 07/28/2024 10:0 5 AM CDT from Last 3 Months Results * DERMATOPATHOLOGY (07/28/2024 10:05 AM CDT) Case Report Dermatopathology Report Case: [id number] Authorizing Provider: Uche Peck MD Collected: 07/28/2024 10:05 AM Ordering Location: [facility] - Received: 07/30/2024 06:41 AM DermPath Lab Pathologist: Nusrat Freire MD Specimen: Skin, penis 4:26 PM CDT DERMATOPATHOLOGY LABORATORY Final Diagnosis Specimen A. 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 The specimen consists of a shave biopsy measuring 6x5x1 mm. Jar 0. 4:26 PM CDT DERMATOPATHOLOGY LABORATORY Microscopic Description Specimen A. SKIN, penis: There is parakeratosis and acanthosis, with a crowded proliferation of atypical basaloid cells in the epithelium. Dyskeratotic cells are present. Mitotic figures and apoptosis are found in all layers of epithelium. The p16 stain shows block-type positivity in epithelium. p53 shows wild type staining pattern. Mib-1 stain highlights proliferating keratinocytes at all levels of the epidermis. COMMENT: This lesion is an HPV-driven precursor/premalign ant lesion of penile squamous cell carcinoma. These lesions used to be called squamous cell carcinoma in situ, Ramirez disease or erythroplasia of Que[place]at; however, the WHO classification of tumors does not recommend these terms. Reference: WHO Classification of Tumours Editorial Board. 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 Carlin (Brittany): International Agency for Research on Cancer; 202. (WHO classification of tumours series, 5th ed.; vol. 8). https://publication s.iarc.fr/610. 5 4:26 PM CDT DERMATOPATHOLOGY LABORATORY Disclaimer An external and internal positive and negative controls are appropriate for the histochemical, immunohistochemical and immunofluorescence stain(s) in this case (if any), except where stated explicitly. The performance characteristics of the stain(s) cited in this report were developed and its performance characteristic determined by the Dermatopathology Laboratory at [facility], directed by Dr. Casa Ceja. These tests need not be, and therefore are not, approved by the [place] Food and Drug Administration. The tests are used for clinical purposes. Billing Codes Specimen Charges Stain Charges 70063 1 46908 57168 92802 1 1 1 5 4:26 PM CDT DERMATOPATHOLOGY LABORATORY Embedded Images 5 4:26 PM CDT DERMATOPATHOLOGY LABORATORY Pathology/Cytolo gy TISSUE SPECIMEN FROM SKIN / Unknown 07/28/2024 10:05 AM CDT 07/30/2024 6:41 AM CDT Uche Peck MD LAB - PATHOLOGY/CYTO LOGY ORDERABLES DERMATOPATHOLOGY LABORATORY [facility] - Department of Dermatology [facility] Medicine [address] [place] [address], [address] Floor [address] [phone] from Last [address] [place] [address] King Rider Personal/Famil y Self [address] [place] [address] [place] [address]
--- OUTSIDE RECORDS SUMMARY | 2024-08-13 00:59 | XMS_ITS | Clinical Summary ---
Author Organization [facility] Address [facility] [place] [address] Care Team Providers Care Brass Wind Instruments Tube Bender Name Role Phone Ernesto Almeida Primary Care Provider [phone] Social History Tobacco Use Types Packs/Day Years Used Date Smoking Tobacco: Never Assessed Sex and Gender Information Value Date Recorded Sex Assigned at Not on file Legal Sex Male 9:09 AM CDT Gender Identity Not on file Sexual Orientation Not on file Plan of Treatment Health Maintenance Due Date Last Done Comments Colorectal Cancer Screening Colonoscopy (10 Years) 1950 Hepatitis C 10/11/1969 DTaP, Tdap and Td Vaccines (1 - Tdap) 10/11/1970 Annual Medicare Wellness Visit 10/11/2016 COVID-19 Vaccine ( season) 2024 04/12/2023, 04/01/2022, 10/22/2021, Additional history exists Influenza Adult (#1) 2024 02/21/2021, 04/18/2019, 03/08/2019, Additional history exists Pneumococcal Vaccine: 65+ Years (3 of 3 - PPSV23 or PCV20) 04/26/2024 04/26/2019, 01/18/2016, 03/22/2014 Zoster Vaccines Completed 10/30/2022, 06/20, 03/22/2014 RSV Immunization or 60+ Years Completed 04/30/2023 Meningococcal B Vaccine Aged Out No l onger eligible based on patient's age to complete this topic Meningococcal Vaccine Aged Out No david christopher eligible based on patient's age to complete this topic RSV Immunizations Under 20 Months Aged Out No longer eligible based on patient's age to complete this topic Insurance MEDICARE [facility] Care Teams Brass [employer] Instruments Tube Bender Relationship Specialty Start Date End Date Ernesto Almeida DO [address] [place] [address] [place] [address] PCP - General FAMILY PRACTICE 08/13/23
--- OUTSIDE RECORDS SUMMARY | 2024-08-13 00:59 | XMS_ITS | Clinical Summary ---
Author Organization Address [address] [place] [address] Care Team Providers Care Behavioral Psychologist Name Role Phone Unavailable Primary Care Provider Unavailabl e Social History Tobacco Use Types Packs/Day Years Used Date Smoking Tobacco: Never Assessed Sex and Gender Information Value Date Recorded Sex Assigned at Not on file Legal Sex Male 1:57 PM REAM CUTTER Gender Identity Not on file Sexual Orientation Not on file Plan of Treatment Health Maintenance Due Date Last Done Comments Hepatitis C Virus (HCV) Screening 1950 TdaP Immunization 1950 Colonoscopy 10/11/1996 Colorectal Cancer Screening 10/11/1996 Cologuard 10/11/2001 Immunochemical Fecal Occult Blood 10/11/2001 Pneumococcal Immunization (5 0+ years) (1 of 1 - PCV) 10/11/2001 Zoster Immunization (1 of 2) 10/11/2001 Influenza Immunization (#1) 2024 SARS-COV-2 Immunization ( season) 2024 02/16/2021, 08/01/2020, 07/11/2020 Respiratory Syncytial Virus (RSV) Immunization (Adult) (1 - 1-dose 75+ series) 10/11/2026 Hepatitis B Immunization Aged Out No longer eligible based on patient's age to complete this topic Meningococcal Immunization (ACWY) Aged Out No longer eligible b ased on patient's age to complete this topic Rotavirus Immunization Aged Out No lo nger eligible based on patient's age to complete this topic
--- OUTSIDE RECORDS SUMMARY | 2024-08-13 00:59 | XMS_ITS | Encounter Summary ---
Author Organization [facility] Address [address] [facility] [place] [address] Care Team Providers Care Admitting Officer Name Role Phone Unavailable Primary Care Provider Unavailabl e Encounter Details Date Type Department Care Team (Late st Contact Info) Description 07/29/2024 Lab Requisition [facility] - DermPath Lab [address] [facility] [place] [phone] Uche Peck MD [facility] DERMATOLOGY [address] [place] [phone] Social History Tobacco Use Types Packs/Day Years Used Date Smoking Tobacco: Never Assessed Sex and Gender Information Value Date Recorded Sex Assigned at Not on file Gender Identity Not on file Sexual Orientation Not on file documented as of this encounter Plan of Treatment Not on file documented as of this encounter Procedures Procedure Name Priority Date/Time Associated Diagnosis Comments DERMATOPATHOLOGY Routine 07/28/2024 10:0 5 AM CDT documented in this encounter Results * DERMATOPATHOLOGY (07/28/2024 10:05 AM CDT) Case Report Dermatopathology Report Case: [id number] Authorizing Provider: Uche Peck MD Collected: 07/28/2024 10:05 AM Ordering Location: [facility] - Received: 07/30/2024 06:41 AM DermPath Lab Pathologist: Nusrat Freire MD Specimen: Skin, penis 4:26 PM CDT DERMATOPATHOLOGY LABORATORY Final Diagnosis Specimen A. 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 The specimen consists of a shave biopsy measuring 6x5x1 mm. Jar 0. 4:26 PM T DERMATOPATHOLOGY LABORATORY Microscopic Description Specimen A. SKIN, [...] series, 5th ed.; vol. 8). https://publication s.iarc.fr/610. 4:26 PM T DERMATOPATHOLOGY LABORATORY Disclaimer An external and internal positive and negative controls are appropriate for the histochemical, immunohistochemical and immunofluorescence stain(s) in this case (if any), except where stated explicitly. The performance characteristics of the stain(s) cited in this report were developed and its performance characteristic determined by the Dermatopathology Laboratory at [facility], directed by Dr. Casa Ceja. These tests need not be, and therefore are not, approved by the [place] Food and Drug Administration. The tests are used for clinical purposes. Billing Codes Specimen Charges Stain Charges 88996 1 95159 [id number] 07323 1 1 1 5 4:26 PM CDT DERMATOPATHOLOGY LABORATORY Embedded Images 4:26 PM CDT DERMATOPATHOLOGY LABORATORY Pathology/Cytolo gy TISSUE SPECIMEN FROM SKIN / Unknown 07/28/2024 10:05 AM CDT 07/30/2024 6:41 AM CDT Uche Peck MD LAB - PATHOLOGY/CYTO LOGY ORDERABLES DERMATOPATHOLOGY LABORATORY [facility] - Department of Dermatology [facility] Medicine [address] [place] [address], [address] [phone] documented in this encounter Visit Diagnoses Not on filedocumented in this encounter
--- OUTSIDE RECORDS SUMMARY | 2024-08-13 00:59 | XMS_ITS | Continuity of Care Document ---
Author Organization [facility] Address [address] [place] [address] Phone Care Team Providers Care Scleroscope Tester Name Role Phone Barker OD, Willis Unavailable Unavailable Advance Directives Directive Yes / No Effective Date File Name No Information Encounters Encounter Description Practice Location Reason(s) For Visit Diagnoses Date Provider Providers Copied on Encounter [facility], [address], [place], [place], [id number], [place] tel:[phone] [facility] No Information 3-200 4 Barker OD Willis. [address] , [address], [place], [address], [place]. tel:[phone] Family History Family Member Type Diagnosis Age At Onset No Information Payers Payer name Insurance type Covered democrat ID Authoriza tion(s) No Information Social History Type Description Quantity Date Captured Comments Sex Male Smoking Status No Information Chief Complaint And Reason For Visit No Information Reason For Referral Reason For Referral No Information History Of Present Illness Encounter Date Complaint History Of Prese nt Illness No Information Functional Status Date Functional Assessmen t No Information Instructions Date Instruction Additional Infor mation No Information Assessments Type Assessment Date No Information Patient Care Teams Name Effective Dates (start - stop) Status Members No Information
--- NOTE | 2024-08-13 12:25 | P.PNAN_ITS ---
Anes - Initial Pre Proc Eval Procedure: Operation Date: 08/13/24 14:45 Proposed Procedures p Esophagogastroduodenoscopy EGD - Conor Earl MD Date/Time: 08/13/24 12:25 Surgeon: Conor Earl MD Pre Op Diagnosis: Dysphagia Patient Data Age: 73 Gender: M Height: 1.78 m Weight: 91.2 kg Allergies Allergy/AdvReac Type Severity Reaction Status Date / Time No Known Allergies Allergy Verified 08/13/24 12:21 Home Medications ?Medication ?Instructions ?Recorded ?Confirmed ?Type magnesium 30 mg tablet 500 mg PO DAILY 06/22/24 08/13/24 History omeprazole 20 mg capsule,delayed 20 mg PO DAILY #90 caps 07/12/24 08/13/24 Rx release hydrochlorothiazide 25 mg tablet See Rx Instructions .Route 07/28/24 08/13/24 Rx .COMPLEX #90 tabs allopurinol 300 mg tablet 300 mg PO DAILY #90 tabs 08/03/24 08/13/24 Rx atorvastatin 40 mg tablet 40 mg PO DAILY #90 tabs 08/05/24 08/13/24 Rx Patient hx anesthesia problems: none Family hx anesthesia problems: none Results Review: All pre-operative results and documents have been reviewed as part of the pre- operative evaluation. [facility] Past Medical History Medical History (Updated 08/13/24 @ 12:25 by Silvestre Caldera MD) Primary hyperparathyroidism Malignant melanoma UTI (urinary tract infection) Cancer Adenomatous colon polyp Chronic gastroesophageal reflux disease Dyslipidemia, goal LDL below 130 Essential (primary) hypertension Family History Family History Mother Patient's mother is , Onset Age: 52 Depression Father Patient's father is , Onset Age: 70 Family history of liver disease Alcoholism Social History Social History Smoking status: Never smoker Alcohol intake: current Drinks per week: 1 Substance use: never Substance use type: does not use Do You Feel Safe in your Home?: Yes Lack of Transportation: No Lack of Food: Never True Current Housing: I Have Housing Concerned About Future Housing: No Difficulty Paying Gas/Electric Bills: No Difficulty Paying for Meds: No Currently Unemployed: No Education: Bachelor's Degree Difficulty w/ Childcare or Family Care: No Living arrangements: with family Gender identity (if verbalized by the patient): Male Spiritual care concerns: No Anes - Eval Final PreProcedure Day of Procedure 08/13/24 12:25 Patient weight: overweight Heart: regular rate and rhythm Lungs: clear to auscultation Airway: Mallampati scale class II Neurological: alert and oriented Last oral intake: >/= 8 hours ASA classification: III Emergent: no Anesthetic plan: proceed Anesthesia type and monitoring: general GIVS and standard monitoring Results Review: All pre-operative results and documents have been reviewed as part of the pre- operative evaluation. Informed Consent: The patient's anesthetic plan and its attendant risks and benefits were discussed with the patient/family/POA. Questions were solicited and answers provided to the satisfaction of the patient/family/POA.
[2024-08-13 12:32] VITALS: BP 137/86; PULSE 79; RESP 16; TEMP 36.1; O2SAT 97
[2024-08-13] MEDS: LACTATED RINGERS 1,000 ML 150 ML IV CONT (12:32)
--- NOTE | 2024-08-13 12:40 | P.HP_ITS ---
History of Present Illness History of Present Illness Consent: Risks, benefits, and alternatives have been discussed and questions answered. Patient agrees to proceed with procedure. Chief complaint: Dysphagia Narrative: King Rider is a 73 year old male with gerd for many years on omeprazole, his PCP advised to try without omeprazole but then started having discomfort and even regurgitation, now is better after started back on it. Needs EGD Review of Systems Review of Systems: All systems reviewed & are unremarkable except as noted in HPI and below PMFSH Past Medical History Medical History (Updated 08/13/24 @ 12:25 by Silvestre Caldera MD) Primary hyperparathyroidism Malignant melanoma UTI (urinary tract infection) Cancer Adenomatous colon polyp Chronic gastroesophageal reflux disease Dyslipidemia, goal LDL below 130 Essential (primary) hypertension Family History Family History Mother Patient's mother is , Onset Age: 52 Depression Father Patient's father is , Onset Age: 70 Family history of liver disease Alcoholism Social History Social History (Reviewed 06/22/24 @ 10:18 by Indira Cheek [facility]) Smoking status: Never smoker Alcohol intake: current Drinks per week: 1 Substance use: never Substance use type: does not use Do You Feel Safe in your Home?: Yes Lack of Transportation: No Lack of Food: Never True Current Housing: I Have Housing Concerned About Future Housing: No Difficulty Paying Gas/Electric Bills: No Difficulty Paying for Meds: No Currently Unemployed: No Education: Bachelor's Degree Difficulty w/ Childcare or Family Care: No Living arrangements: with family Gender identity (if verbalized by the patient): Male Spiritual care concerns: No Meds Home Medications and Allergies Home Medications ?Medication ?Instructions ?Recorded ?Confirmed ?Type magnesium 30 mg tablet 500 mg PO DAILY 06/22/24 08/13/24 History omeprazole 20 mg capsule,delayed 20 mg PO DAILY #90 caps 07/12/24 08/13/24 Rx release hydrochlorothiazide 25 mg tablet See Rx Instructions .Route 07/28/24 08/13/24 Rx .COMPLEX #90 tabs allopurinol 300 mg tablet 300 mg PO DAILY #90 tabs 08/03/24 08/13/24 Rx atorvastatin 40 mg tablet 40 mg PO DAILY #90 tabs 08/05/24 08/13/24 Rx Allergies Allergy/AdvReac Type Severity Reaction Status Date / Time No Known Allergies Allergy Verified 08/13/24 12:21 Vital Signs Vital Signs - 24 hr 08/13/24 12:32 Temperature 96.9 F L Pulse Rate 79 Respiratory Rate 16 Blood Pressure 137/86 Pulse Oximetry 97 Oxygen Delivery Room Air Exam Const: General: comfortable and no acute distress HENMT: Face/Nose/Sinus: Normal nares present Eyes: General: appearance normal, both eyes and all related structures Neck: Neck: no JVD Resp: Auscultation: clear to auscultation bilaterally Cardio: Rate: regular rate Rhythm: regular rhythm GI: Inspection: non-distended GI Palp: Yes Soft to palpation Skin: General skin exam: normal color Neuro: Speech: normal speech Extrem: General: normal to inspection Psych: Mental Status: mental status grossly normal Assessment and Plan Assessment and plan (1) GERD (gastroesophageal reflux disease): Qualifiers: Esophagitis presence: without esophagitis Qualified Code(s): K21.9 - Gastro-esophageal reflux disease without esophagitis Code(s): K21.9 - Gastro-esophageal reflux disease without esophagitis Status: Acute Assessment and Plan: egd with bx on ppi for years which is helping
[2024-08-13 12:52] VITALS: BP 105/73; PULSE 65; RESP 22; O2SAT 97
[2024-08-13 13:02] VITALS: BP 98/71; PULSE 66; RESP 18; O2SAT 99
[2024-08-13 13:12] VITALS: BP 110/75; PULSE 68; RESP 18; O2SAT 100
== END 2024-08-13 13:19 | disposition home or self-care (01) ==
PROVIDERS: PCP Internal Medicine; Referring Provider Internal Medicine; Visit Provider Internal Medicine Gastroenterology
PROC: 0DJ08ZZ Inspection of Upper Intestinal Tract, Via Natural or Artificial Opening Endoscopic (ICD-10-PCS; CPT 43239; principal; 2024-08-13 14:45)
DX: K21.00 Gastro-esophageal reflux disease with esophagitis, without bleeding (principal); K22.2 Esophageal obstruction; K44.9 Diaphragmatic hernia without obstruction or gangrene; E21.0 Primary hyperparathyroidism; E78.5 Hyperlipidemia, unspecified; I10 Essential (primary) hypertension; Z85.820 Personal history of malignant melanoma of skin; Z86.0100 Personal history of colon polyps, unspecified
CPT/HCPCS: 43239; 43249; 88305; C1726; J2704; J7120

== ENCOUNTER 2024-10-15 08:43 | Outpatient (CLI) | payer MEDICARE, SELFPAY ==
--- OUTSIDE RECORDS SUMMARY | 2024-10-15 08:46 | XMS_ITS | Referral Summary ---
Author Organization [facility] Address [address] [place] [address] Care Team Providers Care Nail Specialist Name Role Phone Rob Faustin DO Primary Care Provider [phone] Encounters Date Type Department Care Team Description 08/27/2024 10:00 AM CDT Office Visit [facility] Cardiology at [address] [place] [address] Kalia Salomon MD [place] coronary artery calcium score between 200 and 399 (Primary Dx); Dyslipidemia; Essential hypertension; Secondary hyperparathyroidism 07/21/2024 11:30 AM DYE COLORIST FORMULATOR Office Visit [facility] at [address] [address] Vania Rick PA Cat bite, initial encounter (Primary Dx) from Last 3 Months Allergies No known active allergies Medications omeprazole (PriLOSEC) 20 mg capsule Take 1 capsule (20 mg total) by mouth daily Active allopurinoL (ZYLOPRIM) 300 mg tablet 04/21/2021 Active magnesium oxide 400 mg magnesium capsule Take by mouth Active atorvastatin (LIPITOR) 40 mg tablet Take 1 tablet (40 mg total) by mouth daily Active aspirin 81 mg enteric coated tabletIndicatio ns:prevention of thrombosis Take 1 tablet (81 mg total) by mouth daily 12/24/2023 Active Active Problems Problem Noted Date Diagnosed [...] Sexual Orientation Straight 04/06/2019 7: 47 AM DYE COLORIST FORMULATOR Last Filed Vital Signs Vital Sign Reading Time Taken Comments Blood Pressure 116/75 08/27/2024 10:42 AM CDT Pulse 73 08/27/2024 10:09 AM CDT Temperature 36.7 C (98 F) 07/21/2024 11:27 AM DYE COLORIST FORMULATOR Respiratory Rate 16 07/21/2024 11:27 AM DYE COLORIST FORMULATOR Oxygen Saturation 94% 08/27/2024 10:09 AM CDT Inhaled Oxygen Concentration - - Weight 93.9 kg (207 lb) 08/27/2024 10:09 AM CDT Height 177.8 cm (5' 10) 08/27/2024 10:09 AM CDT Body Mass Index 29.7 08/27/2024 10:09 AM CDT Plan of Treatment Not on file Procedures Procedure Name Priority Date/Time Associated Diagnosis Comments POCT LIPID PANEL Routine 08/27/2024 10:0 5 AM CDT Dyslipidemia from Last 3 Months Results * POCT lipid panel (08/27/2024 10:05 AM CDT) Cholesterol, POC 163 mg/dL HDL, POC 39 mg/dL Triglycerides, POC 253 mg/dL LDL Cholesterol POC 74 mg/dL Chol/HDL Ratio, POC 4.2 Non-HDL Cholesterol, POC 124 mg/dL Cholesterol Total, POC 163 mg/dL Capillary blood 08/27/2024 1 0:05 AM CDT us Kalia Salomon MD POINT OF CARE TEST ORDERA BLES Final Result from Last [address] [place] [address] MEDIC[place] [address] MEDICARE [facility] MEDICARE [facility] Care Teams Nail Specialist Relationship Specialty Start Date End Date Rob Faustin DO [address] [address] [place] [address] PCP - General Internal Medicine 08/27/24
--- OUTSIDE RECORDS SUMMARY | 2024-10-15 08:46 | XMS_ITS | Clinical Summary ---
Author Organization [facility] Address [address] [place] [address] Care Team Providers Care Farmworker Animal Name Role Phone Unavailable Primary Care Provider Unavailabl e Social History Tobacco Use Types Packs/Day Years Used Date Smoking Tobacco: Never Assessed Sex and Gender Information Value Date Recorded Sex Assigned at Not on file Legal Sex Male 1:57 PM DOUBLE END SEWER Gender Identity Not on file Sexual Orientation Not on file Plan of Treatment Health Maintenance Due Date Last Done Comments Hepatitis C Virus (HCV) Screening 1950 TdaP Immunization 1950 Colonoscopy 10/11/1996 Colorectal Cancer Screening 10/11/1996 Cologuard 10/11/2001 Immunochemical Fecal Occult Blood 10/11/2001 Pneumococcal Immunization (5 0+ years) (1 of 1 - PCV) 10/11/2001 Zoster Immunization (1 of 2) 10/11/2001 SARS-COV-2 Immunization ( - 2023- season) 2024 02/16/2021, 08/01/2020, 07/11/2020 Influenza Immunization (Seas on Ended) 2025 Respiratory Syncytial Virus (RSV) Immunization (Adult) (1 - 1-dose 75+ series) 10/11/2026 Hepatitis B Immunization Aged Out No longer eligible based on patient's age to complete this topic Human Papillomavirus (HPV) Immunization Aged Out No longer eligible b ased on patient's age to complete this topic Meningococcal Immunization (ACWY) Aged Out No longer eligible b ased on patient's age to complete this topic Rotavirus Immunization Aged Out No lo nger eligible based on patient's age to complete this topic
--- OUTSIDE RECORDS SUMMARY | 2024-10-15 08:46 | XMS_ITS | Continuity of Care Document ---
Author Organization [facility] Address [address] [place] [address] Phone Care Team Providers Care Clinical Exercise Physiologist Name Role Phone Barker OD, Willis Unavailable Unavailable Advance Directives Directive Yes / No Effective Date File Name No Information Encounters Encounter Description Practice Location Reason(s) For Visit Diagnoses Date Provider Providers Copied on Encounter [facility], [address], [place], [place], [id number], [place] tel:[phone] [facility] No Information 3-200 4 Barker OD Willis. [address] , [address], [place], [address], [place]. tel:[phone] Family History Family Member Type Diagnosis Age At Onset No Information Payers Payer name Insurance type Covered green party ID Authoriza tion(s) No Information Social History [...]
--- OUTSIDE RECORDS SUMMARY | 2024-10-15 08:46 | XMS_ITS | Clinical Summary ---
Author Organization [facility] Address [address] [facility] [place] [address] Care Team Providers Care Mortgage Loan Originator Name Role Phone Unavailable Primary Care Provider Unavailabl e Source Comments [facility],non-owned Affiliates and Associated Physician Practices is amultiple site organization consisting of ambulatory clinics and hospital sitesin [place], [place], [place] and [place]. This disclosure is being madepursuant to the Care Everywhere program and may not contain all information available regarding this patient. Last updated 18.[facility] Encounters Date Type Department Care Team Description 07/29/2024 Lab Requisition [facility] - DermPath Lab [address] [facility], [facility] [place] [address] Uche Peck MD from Last 3 Months Social History Tobacco Use Types Packs/Day Years Used Date Smoking Tobacco: Never Assessed Sex and Gender Information Value Date Recorded Sex Assigned at Not on file Legal Sex Male 10:21 AM CDT Gender Identity Not on file [...] VACCINE (1 - 2023-2 5 season) 2024 DEPRESSION SCREENING 05/19/2024 INFLUENZA VACCINE (Season Ended) 2025 Respiratory Syncytial Virus (RSV) Vaccine Pt: or [...] AM CDT) Case Report Dermatopathology Report Case: [id number] Authorizing Provider: Uche Peck MD Collected: 07/28/2024 10:05 AM Ordering Location: [facility] - Received: 07/30/2024 06:41 AM DermPath Lab Pathologist: Nusrat Freire MD Specimen: Skin, penis 4:26 PM CDT DERMATOPATHOLOGY LABORATORY Final Diagnosis Specimen A. 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 Casa Ceja. These tests need not be, and therefore are not, approved by the [place] Food and Drug Administration. The tests are used for clinical purposes. Billing Codes Specimen Charges Stain Charges 99292 1 [id number] [id number] [id number] 1 1 1 5 4:26 PM CDT DERMATOPATHOLOGY LABORATORY Embedded Images 5 4:26 PM CDT DERMATOPATHOLOGY LABORATORY Pathology/Cytolo gy TISSUE SPECIMEN FROM SKIN / Unknown 07/28/2024 10:05 AM CDT 07/30/2024 6:41 AM CDT Uche Peck MD LAB - PATHOLOGY/CYTOLOGY DAVIE BHATIA Final Result DERMATOPATHOLOGY LABORATORY [facility] - Department of Dermatology [address] [place] [address], [facility] [phone] from Last 3 Months Insurance [facility] [place] [address] MEDICARE [facility] MEDICARE SELF PAY NO INSURANCE Member Subscriber Plan / Payer (Ef fective for All Dates) Name:Tereso King Member ID:Not on file Relation to Subscriber:Not on file Name:[place] Subscriber ID:Not on file (Home) Address: [facility] [facility] [address] [facility] [place] [address] Payer ID:Not on file Group ID:Not on file Type:Self Pay Address: [place], [place]
--- OUTSIDE RECORDS SUMMARY | 2024-10-15 08:46 | XMS_ITS | Encounter Summary ---
Author Organization [facility] Address [address] [facility] [place] [address] Care Team Providers Care Voltmeter Operator Name Role Phone Unavailable Primary Care Provider Unavailabl e Encounter Details Date Type Department Care Team (Late st Contact Info) Description 07/29/2024 Lab Requisition [facility] - DermPath Lab [address] [place] [id number] Uche Peck MD [facility] DERMATOLOGY [address] [place] [address] Social History Tobacco Use Types Packs/Day [...] AM CDT) Case Report Dermatopathology Report Case: [id number] Authorizing Provider: Uche Peck MD Collected: 07/28/2024 10:05 AM Ordering Location: [facility] - Received: 07/30/2024 06:41 AM DermPath Lab Pathologist: Nusrat Freire MD Specimen: Skin, penis 4:26 PM CDT DERMATOPATHOLOGY LABORATORY Final Diagnosis Specimen A. 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 8). https://publication [email or web address].iarc.[email or web address]. 4:26 PM CDT DERMATOPATHOLOGY LABORATORY Disclaimer An external and internal positive and negative controls are appropriate for the histochemical, immunohistochemical and immunofluorescence stain(s) in this case (if any), except where stated explicitly. The performance characteristics of the stain(s) cited in this report were developed and its performance characteristic determined by the Dermatopathology Laboratory at [facility], directed by Dr. Casa Ceja. These tests need not be, and therefore are not, approved by the [place] Food and Drug Administration. The tests are used for clinical purposes. Billing Codes Specimen Charges Stain Charges 50410 1 87925 03473 40472 1 1 1 5 4:26 PM CDT DERMATOPATHOLOGY LABORATORY Embedded Images 5 4:26 PM CDT DERMATOPATHOLOGY LABORATORY Pathology/Cytolo gy TISSUE SPECIMEN FROM SKIN / Unknown 07/28/2024 10:05 AM CDT 07/30/2024 6:41 AM CDT us Uche Peck MD LAB - PATHOLOGY/CYTOLOGY JULIAE JANNETTE Final Result DERMATOPATHOLOGY LABORATORY [facility] - Department of Dermatology [facility] Medicine [address] [place] [address], [address] [phone] documented in this encounter Visit Diagnoses Not on filedocumented in this encounter
--- OUTSIDE RECORDS SUMMARY | 2024-10-15 08:46 | XMS_ITS | Clinical Summary ---
Author Organization [facility] Address [address] [place] [phone] Phone Care Team Providers Care Meter Repairer Helper Name Role Phone Kris Rust MD Primary Care Provider [phone]- [phone] Allergies No known active allergies Medications atorvastatin (LIPITOR) 40 MG tablet Take 40 mg by mouth 1 (one) time each day Active omeprazole (PriLOSEC) [address] capsule Take 20 mg by mouth 1 (one) time each day Active triamcinolone (KENALOG) 0.1 % cream 02/01/2021 Active hydroCHLOROthiaz dasia (HYDRODIURIL) 25 MG tablet Take 1 tablet [...] 09/14/2021 Overview (09/15/2020): Hyperlipidemia On Treatment Immunizations Immunization Administration Dates Next Due Fluzone High-Dose 02/02/2020 [...] Assigned at Male 02/22/2019 8:43 AM MDT Legal Sex Male 10:38 AM MDT Gender Identity Male 02/22/2019 8:43 [...] 10:19 AM CDT Height 177.8 cm (5' 10) 09/19/2021 10:19 AM CDT Body Mass Index 29.84 09/19/2021 10:19 AM CDT Plan of Treatment Health Maintenance Due Date Last Done Comments Pneumococcal PPSV23/PCV13 65 + Years / Low and Medium Risk (3 of 3 - PCV20 or PCV21) 04/26/2024 04/26/2019, 03/22/2014 Influenza Vaccine (Season Ended) 2025 02/21/2021, 04/18/2019, 03/22/2014 Insurance MEDICARE [facility] Care Teams Meter Repairer Helper Relationship Specialty Start Date End Date Kris Rust MD [address] [place] [address] PCP - General Family Medicine 12/28/18
--- OUTSIDE RECORDS SUMMARY | 2024-10-15 08:46 | XMS_ITS | Clinical Summary ---
Author Organization [facility] Address [address] [place] [address] Care Team Providers Care Kieselguhr Regenerator Operator Name Role Phone Rob Faustin DO Primary Care Provider [phone]- [phone] Allergies No known active allergies Medications omeprazole [...] Description 08/27/2024 10:00 AM CDT Office Visit [facility] Cardiology at [address] [place] [address] Kalia Salomon MD [place] coronary artery calcium score between 200 and 399 (Primary Dx); Dyslipidemia; Essential hypertension; Secondary hyperparathyroidism 07/21/2024 11:30 AM CANDY FEEDER Office Visit [facility] at [address] [address] Vania Rick PA Cat bite, initial encounter (Primary Dx) from Last 3 Months Immunizations Immunization Administration Dates Next Due Tdap 07/21/2024 Surgical History Surgery Date Site/Laterality Comments LASIK VASECTOMY CATARACT EXTRACTION Medical History Medical History Date Comments Hypertension Hyperlipidemia GERD (gastroesophageal reflux disease) Cancer (HCC) melanoma Kidney stone 6 years ago Arthritis Family History Medical History Relation Name Comments Mitral valve Brother Alcohol abuse Father Rene Rider Cirrhosis Father Rene Rider Alzheimer's disease Mother Lizzette Rider Depression Mother Lizzette Rider Mental illness Mother Lizzette Rider Miscarriages / Stillbirths Mother Lizzette villarreal Relation Name Status Comments Brother Father Rene Rider Alive Mother Lizzette Rider Alive Social History Tobacco Use Types Packs/Day Years Used Date Smoking Tobacco: Never Smokeless Tobacco: Never Tobacco Cessation:Counseling Given: Not Answered Sex and Gender Information Value Date Recorded Sex Assigned at Not on file Legal Sex Male 3:54 PM CDT Gender Identity Male 01/25/2022 4:59 PM CDT Sexual Orientation Straight 04/06/2019 7: 47 AM CANDY FEEDER Obstetrics History Last Filed Vital Signs Vital Sign Reading Time Taken Comments Blood Pressure 116/75 08/27/2024 10:42 AM CDT Pulse 73 08/27/2024 10:09 AM CDT Temperature 36.7 C (98 F) 07/21/2024 11:27 AM CANDY FEEDER Respiratory Rate 16 07/21/2024 11:27 AM CANDY FEEDER Oxygen Saturation 94% 08/27/2024 10:09 AM CDT Inhaled Oxygen Concentration - - Weight 93.9 kg (207 lb) 08/27/2024 10:09 AM CDT Height 177.8 cm (5' 10) 08/27/2024 10:09 AM CDT Body Mass Index 29.7 08/27/2024 10:09 AM CDT Plan of Treatment Health Maintenance Due Date Last Done Comments Colon Cancer Screening-Colonoscopy 1950 Depression Screening 1950 Hepatitis C Screening 1950 Hepatitis B Screening 10/11/1969 Zoster Vaccine (2 of 3) 05/17/2014 03/22/2014 Well Visit 65+ 10/11/2016 Covid-19 Vaccine (4 - 2023-2 5 season) 2024 02/16/2021, 08/01/2020, 07/11/2020 Pneumococcal vaccine 65+ (3 of 3 - PCV20 or PCV21) 04/26/2024 04/26/2019, 01/18/2016, 03/22/2014 Fall Risk Assessment 12/23/2024 12/24/2023 Influenza Vaccine (Season Ended) 2025 02/21/2021, 02/01/2021, 02/02/2020, Additional history exists DTaP/Tdap/Td Vaccine (2 - Td or Tdap) 07/21/2034 07/21/2024 Procedures Procedure Name Priority Date/Time Associated Diagnosis [...] Capillary blood 08/27/2024 1 0:05 AM CDT Kalia Salomon MD POINT OF CARE TEST ORDERA BLES Final Result from Last [address] [place] [address] MEDICARE [facility] [place] [address] MEDICARE [facility] MEDICARE [employer] Care Teams Kieselguhr Regenerator Operator Relationship Specialty Start Date End Date Rob Faustin DO [facility] [facility] [address] [place] [phone] PCP - General Internal Medicine 08/27/24
[2024-10-15 16:42] LABS: Add Urine Microscopic? YES; Appearance Urine Clear (Clear); Bacteria Urine None Seen /hpf; Bilirubin Urine Negative (Negative); Blood Urine 1+ (Negative); Color Urine Yellow (Yellow); Glucose Urine UA Negative (Negative); Ketones Urine Negative (Negative); Leukocyte Esterase Ur Negative LEU/UL (Negative); Nitrate Urine Negative (Negative); Non Pathogenic Casts 0-2; Protein Urine Negative (Negative); RBC Urine 21-50 /hpf (0-2); Specific Grav Ur 1.014 (1.001-1.035); Squamous Epithelial Cell Urine None Seen /hpf (Few); Urobilinogen Urine 0.2 mg/dL (<2.0); WBC Urine 0-5 /hpf (0-3)
[2024-10-15 17:36] LABS: Albumin Level 4.4 g/dL (3.5-5.1); Anion Gap 11 mmol/L (4-12); Blood Urea Nitrogen 25 mg/dL (9-20); Calcium 9.4 mg/dL (8.4-10.2); Carbon Dioxide 25 mmol/L (22-30); Chloride 102 mmol/L (98-107); Estimated Glomerular Filt Rate > 60; Glucose 95 mg/dL (65-110); Phosphorus 3.2 mg/dL (2.5-4.5); Potassium 3.7 mmol/L (3.4-5.0); Sodium 138 mmol/L (137-145); Uric Acid 4.3 mg/dL (3.5-8.5)
[2024-10-15 17:44] LABS: Parathyroid Intact 54.8 pg/mL (14.5-75.2)
== END 2024-10-15 08:44 | disposition home or self-care (01) ==
LOC: ANHGOSHLAB 08:44
PROVIDERS: PCP Internal Medicine; Visit Provider Internal Medicine Nephrology
DX: N20.0 Calculus of kidney (principal)
CPT/HCPCS: 36415; 80069; 81001; 83970; 84550

== ENCOUNTER 2024-12-14 09:39 | Outpatient (CLI) | payer MEDICARE, SELFPAY ==
--- NOTE | ~2024-12-14 | XR_ITS ---
XR abdomen/kub 1V 12/14/2024 10:00 Indication: Horseshoe kidney with stones Procedure: KUB Comparison: 10/10/2023 Findings: There are multiple left renal stones. Bowel gas pattern nonobstructive. No acute osseous ab normality. Impression: 1: Left nephrolithiasis. Reviewed, dictated and finalized at location A. Impression: 1: Left nephrolithiasis.
--- OUTSIDE RECORDS SUMMARY | 2024-12-14 09:47 | XMS_ITS | Encounter Summary ---
Author Organization [facility] Address [address] [facility] [place] [address] Care Team Providers Care Rod Filler Name Role Phone Unavailable Primary Care Provider Unavailabl e Encounter Details Date Type Department Care Team (Late st Contact Info) Description 07/29/2024 Lab Requisition [facility] - DermPath Lab [address] [place] [phone] Uche Peck MD [facility] DERMATOLOGY [address] [place] [phone] Social History Tobacco Use Types Packs/Day [...] AM CDT) Case Report Dermatopathology Report Case: [id number] Authorizing Provider: Uche Peck MD Collected: 07/28/2024 10:05 AM Ordering Location: [facility] Physician [facility] - Received: 07/30/2024 06:41 AM DermPath [...] determined by the Dermatopathology Laboratory at [facility], directed by Dr. Casa Ceja. These tests need not be, and therefore are not, approved by the [place] Food and Drug Administration. The tests are used for clinical purposes. Billing Codes Specimen Charges Stain Charges 56857 1 16541 [id number] 94614 1 1 1 5 4:26 PM CDT DERMATOPATHOLOGY LABORATORY Embedded Images 5 4:26 PM CDT DERMATOPATHOLOGY LABORATORY Pathology/Cytolo gy TISSUE SPECIMEN FROM SKIN / Unknown 07/28/2024 10:05 AM CDT 07/30/2024 6:41 AM CDT us Uche Peck MD LAB - PATHOLOGY/CYTOLOGY JULIAE JANNETTE Final Result DERMATOPATHOLOGY LABORATORY [facility] - Department of Dermatology [facility] Medicine [address] [place] [address], [address]rd Floor [address] [phone] documented in this encounter Visit Diagnoses Not on filedocumented in this encounter
--- OUTSIDE RECORDS SUMMARY | 2024-12-14 09:47 | XMS_ITS | Clinical Summary ---
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 History Last Filed Vital Signs Vital Sign Reading Time Taken Comments Blood Pressure 116/75 08/27/2024 10:42 AM CDT Pulse 73 08/27/2024 10:09 AM CDT Temperature 36.7 C (98 F) 07/21/2024 11:27 AM RV REPAIRER Respiratory Rate 16 07/21/2024 11:27 AM RV REPAIRER Oxygen Saturation 94% 08/27/2024 10:09 AM CDT [...] Fall Risk Assessment 12/23/2024 12/24/2023 Influenza Vaccine (#1) 2025 , 02/01/2021, 02/02/2020, Additional history exists DTaP/Tdap/Td Vaccine (2 - Td or Tdap) 07/21/2034 07/21/[address] [place] [address] [facility] [place] [address] MEDICARE [facility] MEDICARE [facility] Care Teams Police Superintendent Relationship Specialty Start Date End Date Rob Faustin DO [address] [facility] [address] [place] [address] [place] [address] [place] [address] PCP - General Internal Medicine 08/27/24
--- OUTSIDE RECORDS SUMMARY | 2024-12-14 09:47 | XMS_ITS | Clinical Summary ---
Author Organization [facility] Address [address] [facility] [place] [address] Care Team Providers Care Petroleum Refining Firer Name Role Phone Unavailable Primary Care Provider Unavailabl e Source Comments [facility],non-owned Affiliates and Associated Physician Practices is amultiple site organization consisting of ambulatory clinics and hospital sitesin [place], [place], [place] and [place]. This disclosure is being madepursuant to the Care Everywhere program and may not contain all information available regarding this patient. Last updated 18.[facility] [employer] Social History Tobacco Use Types Packs/Day Years [...] season) 2024 DEPRESSION SCREENING 05/19/2024 INFLUENZA VACCINE (#1) 2025 Respiratory Syncytial Virus (RSV) Vaccine Pt: [...] patient's age to complete [place] [address] [place] [address] [facility] MEDICARE SELF PAY NO INSURANCE Member Subscriber Plan / Payer (Ef fective for All Dates) Name:Ale Bartlett Member ID:Not on file Relation to Subscriber:Not on file Name:ALE BARTLETT Subscriber ID:Not on file (Home) Address: [address] [place] [address] [place] [address] Payer ID:Not on file Group ID:Not on file Type:Self Pay Address: [place], [place]
--- OUTSIDE RECORDS SUMMARY | 2024-12-14 09:47 | XMS_ITS | Referral Summary ---
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 Last Filed Vital Signs Vital Sign Reading Time Taken Comments Blood Pressure 116/75 08/27/2024 10:42 AM CDT Pulse 73 08/27/2024 10:09 AM CDT Temperature 36.7 C (98 F) 07/21/2024 11:27 AM BOX CAR BRACER Respiratory Rate 16 07/21/2024 11:27 AM BOX CAR BRACER Oxygen Saturation 94% 08/27/2024 10:09 AM CDT Inhaled Oxygen Concentration - - Weight 93.9 kg (207 lb) 08/27/2024 10:09 AM CDT Height 177.8 cm (5' 10) 08/27/2024 10:09 AM CDT Body Mass Index 29.7 08/27/2024 10:09 AM CDT Plan of Treatment [place] on [place] [id number] MEDICARE [facility] [place] [id number] MEDIC[place] [address] MEDICARE [facility] Care Teams Camera Repairman Relationship Specialty Start Date End Date Rob Faustin DO [address] [place] [address] [address] [place] [id number] PCP - General Internal Medicine 08/27/24
--- OUTSIDE RECORDS SUMMARY | 2024-12-14 09:47 | XMS_ITS | Clinical Summary ---
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
--- OUTSIDE RECORDS SUMMARY | 2024-12-14 09:47 | XMS_ITS | Clinical Summary ---
Author Organization [facility] Address [address] [place] [address] Phone Care Team Providers Care Product Operations Associate Name Role Phone Kris Rust MD Primary Care Provider [phone]- [phone] Allergies No known active allergies Medications atorvastatin [...] or PCV21) 04/26/2024 04/26/2019, 03/22/2014 Influenza Vaccine (#1) 2025 , 04/18/2019, 03/22/2014 Insurance MEDICARE [facility] Care Teams Product Operations Associate Relationship Specialty Start Date End Date Kris Rust MD [address] [place] [address] PCP - General Family Medicine 12/28/18
== END 2024-12-14 09:40 | disposition home or self-care (01) ==
PROVIDERS: PCP Internal Medicine; Visit Provider Urology
DX: Q63.1 Lobulated, fused and horseshoe kidney (principal); N20.0 Calculus of kidney
CPT/HCPCS: 74018

== ENCOUNTER 2025-04-19 10:11 | Outpatient (CLI) | payer MEDICARE, SELFPAY ==
--- OUTSIDE RECORDS SUMMARY | 2025-04-19 10:59 | XMS_ITS | Clinical Summary ---
Author Organization [facility] Address [address] [facility] [place] [address] Care Team Providers Care Tire Service Technician Name Role Phone Unavailable Primary Care Provider Unavailabl e Source Comments [facility],non-owned Affiliates and Associated Physician Practices is amultiple site organization consisting of ambulatory clinics and hospital sitesin [place], [place], [place] and [place]. This disclosure is being madepursuant to the Care Everywhere program and may not contain all information available regarding this patient. Last updated 18.[facility] [employer] Social History Tobacco Use Types Packs/Day Years [...] 10/11/2001 ZOSTER VACCINE (1 of 2) 10/11/2001 DEPRESSION SCREENING 05/19/2024 COVID-19 VACCINE ( - 2024-2 6 season) 2025 INFLUENZA VACCINE (#1) 2025 Respiratory Syncytial Virus [...] [place] [address] [place] [address] [place] [address] [facility] MEDICARE SELF PAY NO INSURANCE Member Subscriber Plan / Payer (Ef fective for All Dates) Name:Ale Bartlett Member ID:Not on file Relation to Subscriber:Not on file Name:ALE BARTLETT Subscriber ID:Not on file (Home) Address: [address] [place] [address] [place] [address] Payer ID:Not on file Group ID:Not on file Type:Self Pay Address: [place], [place]
--- OUTSIDE RECORDS SUMMARY | 2025-04-19 10:59 | XMS_ITS | Clinical Summary ---
Author Organization [facility] Address [facility] [place] [address] Care Team Providers Care Group Home Manager Name Role Phone Ernesto Almeida Primary Care Provider [phone] Social History Tobacco Use Types Packs/Day Years [...] Tdap) 10/11/1970 Annual Medicare Wellness Visit 10/11/2016 Pneumococcal Vaccine: 50+ Years (3 of 3 - PCV20 or PCV21) 04/26/2024 04/26/2019, 01/18/2016, 03/22/2014 COVID-19 Vaccine ( season) 2025 04/12/2023, 04/01/2022, 10/22/2021, Additional history exists Influenza Adult (#1) 2025 02/21/2021, 04/18/2019, 03/08/2019, Additional history exists Zoster Vaccines Completed 10/30/2022, 06/20, 03/22/2014 RSV Immunization or 60+ Years Completed 04/30/2023 Hepatitis A Vaccines Aged Out No long er eligible based on patient's age to complete this topic Meningococcal B Vaccine Aged Out No l onger eligible based on patient's age to complete this topic Meningococcal Vaccine Aged Out No david christopher eligible based on patient's age to complete this topic RSV Immunizations Under 20 Months Aged Out No longer eligible based on patient's age to complete this topic Insurance MEDICARE [facility] Care Teams Group Home Manager Relationship Specialty Start Date End Date Ernesto Almeida DO [address] [facility] [address] [place] [address] [place] [address] PCP - General FAMILY PRACTICE 08/13/23
--- OUTSIDE RECORDS SUMMARY | 2025-04-19 10:59 | XMS_ITS | Clinical Summary ---
Author Organization [facility] Address [address] [place] [address] Phone Care Team Providers Care Teacher Of Family And Consumer Science Name Role Phone Kris Rust MD Primary Care Provider [phone] Allergies No known active allergies Medications atorvastatin [...] 04/18/2019, 03/22/2014 Insurance MEDICARE [facility] Care Teams Teacher Of Family And Consumer Science Relationship Specialty Start Date End Date Kris Rust MD [address] [place] [address] PCP - General Family Medicine 12/28/18
--- OUTSIDE RECORDS SUMMARY | 2025-04-19 10:59 | XMS_ITS | Clinical Summary ---
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
--- OUTSIDE RECORDS SUMMARY | 2025-04-19 10:59 | XMS_ITS | Encounter Summary ---
Author Organization [facility] Address [address] [place] [address] Care Team Providers Care Kinesiologist Name Role Phone Unavailable Primary Care Provider Unavailabl e Encounter Details Date Type Department Care Team (Late st Contact Info) Description 07/29/2024 Lab Requisition [facility] - DermPath Lab [address] [place] [phone] Uche Peck MD [facility] DERMATOLOGY [address] [place] [phone] Social History Tobacco Use Types Packs/Day [...] AM CDT) Case Report Dermatopathology Report Case: [id number] Authorizing Provider: Uche Peck MD Collected: 07/28/2024 10:05 AM Ordering Location: [facility] Physician [facility] - Received: 07/30/2024 06:41 AM DermPath Lab [...] Board. 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 [place] ([place]): International Agency for Research on Cancer; 202. [...] characteristic determined by the Dermatopathology Laboratory at [facility], directed by Dr. Casa Ceja. These tests need not be, and therefore are not, approved by the [place] Food and Drug Administration. The tests are used for clinical purposes. Billing Codes Specimen Charges Stain Charges 57205 1 05919 [id number] 1 1 1 5 4:26 PM CDT DERMATOPATHOLOGY LABORATORY Embedded Images 5 4:26 PM CDT DERMATOPATHOLOGY LABORATORY Pathology/Cytolo gy TISSUE SPECIMEN FROM SKIN / Unknown 07/28/2024 10:05 AM CDT 07/30/2024 6:41 AM CDT us Uche Peck MD LAB - PATHOLOGY/CYTOLOGY JULIAE JANNETTE Final Result DERMATOPATHOLOGY LABORATORY [facility] - Department of Dermatology [facility] Medicine [address] [place] [address], [address]rd Floor [address] [phone] documented in this encounter Visit Diagnoses Not on filedocumented in this encounter
--- OUTSIDE RECORDS SUMMARY | 2025-04-19 10:59 | XMS_ITS | Clinical Summary ---
Author Organization [facility] Address [address] [place] [address] Care Team Providers Care Order Planner Name Role Phone Rob Faustin DO Primary Care Provider [phone]- [phone] Allergies No known active allergies Medications omeprazole [...] Sexual Orientation Straight 04/06/2019 7: 47 AM TELEPHONE OPERATOR RECEPTIONIST Last Filed Vital Signs Vital Sign Reading Time Taken Comments Blood Pressure 116/75 08/27/2024 10:42 AM CDT Pulse 73 08/27/2024 10:09 AM CDT Temperature 36.7 C (98 F) 07/21/2024 11:27 AM TELEPHONE OPERATOR RECEPTIONIST Respiratory Rate 16 07/21/2024 11:27 AM TELEPHONE OPERATOR RECEPTIONIST Oxygen Saturation 94% 08/27/2024 10:09 AM CDT [...] 3) 05/17/2014 03/22/2014 Well Visit 65+ 10/11/2016 Pneumococcal vaccine 65+ (3 of 3 - PCV20 or PCV21) 04/26/2024 04/26/2019, 01/18/2016, 03/22/2014 Fall Risk Assessment 12/23/2024 12/24/2023 Covid-19 Vaccine (4 - 2024-2 6 season) 2025 02/16/2021, 08/01/2020, 07/11/2020 Influenza Vaccine (#1) 2025 , 02/01/2021, 02/02/2020, Additional history exists DTaP/Tdap/Td Vaccine (2 - Td or Tdap) 07/21/2034 07/21/[address] [place] [address] [facility] [address] MEDICARE [facility] [place] [address] MEDICARE [facility] Care Teams Order Planner Relationship Specialty Start Date End Date Rob Faustin DO PCP - General Internal Medicine 08/27/24
[2025-04-19 13:05] LABS: Albumin Level 4.6 g/dL (3.5-5.1); Anion Gap 3 mmol/L (4-12); Blood Urea Nitrogen 23 mg/dL (9-20); Calcium 9.6 mg/dL (8.4-10.2); Carbon Dioxide 32 mmol/L (22-30); Chloride 104 mmol/L (98-107); Estimated Glomerular Filt Rate > 60; Glucose 101 mg/dL (65-110); Potassium 4.0 mmol/L (3.4-5.0); Sodium 139 mmol/L (137-145); Uric Acid 4.1 mg/dL (3.5-8.5)
[2025-04-19 13:08] LABS: Add Urine Microscopic? YES; Appearance Urine Clear (Clear); Glucose Urine UA Negative (Negative); Leukocyte Esterase Ur Negative LEU/UL (Negative); Nitrate Urine Negative (Negative); Non Pathogenic Casts 0-2; Specific Grav Ur 1.026 (1.001-1.035)
== END 2025-04-19 10:12 | disposition home or self-care (01) ==
LOC: ANHGOSHLAB 10:12
PROVIDERS: PCP Internal Medicine; Visit Provider Internal Medicine Nephrology
DX: N20.0 Calculus of kidney (principal)
CPT/HCPCS: 36415; 80069; 81001; 84550